=== PATIENT | male | born 1950 | race African-American/Black ===

== ENCOUNTER 2017-12-30 01:39 | Inpatient (IN) | payer BC ==
[2017-12-30 02:33] LABS: #Eosinphils 0.1 thou/uL (0.0-0.7); #Lymphocytes 1.2 thou/uL (1.20-3.40); #Monocytes 0.3 thou/uL (0.11-0.59); #Neutrophils 4.5 thou/uL (1.40-6.50); %Basophils 0.8 % (0.0-1.0); %Eosinophils 2.3 % (0.0-10.0); %Lymphocytes 18.6 % (21.0-51.0); %Monocytes 5.5 % (0.0-10.0); %Neutrophils 72.8 % (42.0-75.0); Mean Corpuscular HGB CONC 34.1 g/dL (32.0-36.0); Mean Corpuscular Hemoglobin 31.5 pg (27.0-31.0); Mean Corpuscular Volume 92.4 fL (78.0-98.0); Mean Platelet Volume 9.7 fL (7.4-10.4); Platelet Count 153 thou/uL (130-400); RBC Distribution Width 15.1 % (11.5-14.5); White Blood Cell (WBC) Count 6.2 thou/uL (4.8-10.8)
[2017-12-30 02:47] LABS: ALT (SGPT) 29 U/L (8-55); AST (SGOT) 29 U/L (5-34); Albumin 4.2 g/dL (3.4-4.8); Alkaline Phosphatase 133 U/L (40-150); Anion Gap 17 mmol/L (10-20); BUN (Urea Nitrogen) 49 mg/dL (8.4-25.7); Bilirubin, Total 1.2 mg/dL (0.2-1.2); CK (CPK) 491 U/L (30-200); Calc. Creatinine Clearance 0 mL/min (70-130); Calcium 9.8 mg/dL (7.8-10.44); Carbon Dioxide 23 mmol/L (23-31); Chloride 104 mmol/L (98-107); Estimated GFR-MDRD 31; Globulin 3.3 g/dL (2.4-3.5); Glucose 341 mg/dL (80-115); Potassium 3.6 mmol/L (3.5-5.1); Protein, Total 7.5 g/dL (5.8-8.1); Sodium 140 mmol/L (136-145)
[2017-12-30 03:00] LABS: Troponin I 1.254 ng/mL (< 0.028)
[2017-12-30] MEDS ORDERED: Furosemide 40 MG/4 ML VIAL ONE (03:15)
[2017-12-30] MEDS ORDERED: Enoxaparin Sodium 60 MG/0.6 ML SYRINGE ONE (04:14)
[2017-12-30 04:18] LABS: Bilirubin Negative (Negative); Blood, Urine Trace (Negative); Clarity CLEAR (Clear); Glucose, Urine (Dipstick) 250 mg/dL (Negative); Leukocyte Negative (Negative); Nitrite Negative (Negative); Protein, Urine (Dipstick) 100 mg/dL (Neg-Trace); Specific Gravity, Urine 1.023 (1.002-1.036); pH, Urine 5.5 (5.0-9.0)
[2017-12-30 04:21] LABS: Bacteria/HPF None Seen HPF (None Seen); Hyaline Casts/LPF 0-3 HYALINE CAST LPF (0-3 Hyaline); Pathc Cast-AUWi Flag 0.58 (0-2.49); RBC/HPF 0-3 HPF (0-3); Squamous Epithelial 0-3 HPF (0-3); WBC/HPF 0-3 HPF (0-3)
[2017-12-30] MEDS ORDERED: Mag-Al 1200 mg/1200 mg/30 ML UDCUP PO PRN (05:16)
[2017-12-30] MEDS ORDERED: Diabetic Tussin 200 MG/10 ML UDCUP PO PRN (05:16)
[2017-12-30] MEDS ORDERED: cloNIDine 0.1 MG TAB PO PRN (05:16)
[2017-12-30] MEDS ORDERED: Ondansetron HCl/PF 4 MG/2 ML Vial IVP PRN (05:16)
[2017-12-30] MEDS ORDERED: Bisacodyl 5 MG TAB PO PRN (05:16)
[2017-12-30] MEDS ORDERED: Acetaminophen 325 MG TAB PO PRN (05:16)
[2017-12-30] MEDS ORDERED: Calcium Carbonate 500 MG ChewTAB PO PRN (05:16)
[2017-12-30] MEDS ORDERED: Nitroglycerin 0.4 MG TAB (25 Tab Bottle) SL PRN (05:16)
[2017-12-30] MEDS ORDERED: Dextrose 5% in Water 1,000 ML IV PRN (05:16)
[2017-12-30] MEDS ORDERED: traMADol HCl 50 MG TAB PO PRN (05:16)
[2017-12-30] MEDS ORDERED: Benzonatate 100 MG CAP PO PRN (05:16)
[2017-12-30] MEDS ORDERED: Loratadine 10 MG TAB PO PRN (05:16)
[2017-12-30] MEDS ORDERED: hydrALAZINE 20 MG/ML VIAL SLOW IVP PRN (05:16)
[2017-12-30] MEDS ORDERED: Senokot 8.6 MG TAB PO PRN (05:16)
[2017-12-30] MEDS ORDERED: Dextrose 50% Abboject 50 ML SYRINGE SLOW IVP PRN (05:16)
[2017-12-30 05:26] LABS: Troponin I 1.641 ng/mL (< 0.028)
[2017-12-30] MEDS ORDERED: Metolazone 5 MG TAB PO SCH (05:30)
[2017-12-30 05:59] VITALS: BMI 36.3
[2017-12-30] MEDS: Furosemide 40 MG/4 ML VIAL SLOW IVP SCH ×2 (06:24→14:25)
[2017-12-30 06:51] LABS: Hemoglobin A1c 9.2 % (4.0-6.0)
[2017-12-30] MEDS ORDERED: Spironolactone 25 MG TAB PO SCH (09:00)
[2017-12-30] MEDS ORDERED: Enoxaparin Sodium 40 MG/0.4 ML SYRINGE SC SCH (09:00)
[2017-12-30] MEDS ORDERED: Potassium Chloride 10 MEQ TAB PO SCH (09:00)
[2017-12-30 09:16] LABS: Troponin I 2.027 ng/mL (< 0.028)
[2017-12-30] MEDS: Famotidine 20 MG TAB PO SCH (09:47)
[2017-12-30] MEDS: Aspirin 325 MG TAB PO SCH (09:49)
[2017-12-30] MEDS: Carvedilol 3.125 MG TAB PO SCH ×2 (09:49→21:25)
[2017-12-30] MEDS: Alogliptin 6.25 MG TAB PO SCH (09:50)
[2017-12-30] MEDS: Aspirin 81 mg Enteric Coated Tablet PO SCH (09:52)
[2017-12-30] MEDS: Enoxaparin Sodium 120 MG/0.8 ML SYRINGE SC SCH ×2 (09:52→21:25)
--- NOTE | 2017-12-30 10:59 | RAD ---
PORTABLE CHEST 1 VIEW: DATE: 12/30/17. TIME: 2:08 a.m. HISTORY: Shortness of breath. FINDINGS: Comparison is made with the exam of 10/30/07. The heart size is prominent. The aorta is tortuous. The left-sided AICD remains in place. No lobar consolidation, pneumothoraces, maría pulmonary edema, or pleural effusions are seen. POS: [facility]
[2017-12-30] MEDS: HumaLOG 300 UNITS/3 ML VIAL SC PRN ×2 (13:12→17:49)
[2017-12-30] MEDS ORDERED: Sodium Chloride 0.9% 10 ML ONE (14:17)
--- NOTE | 2017-12-30 15:04 | PDOC.EVN ---
Event Note - Event Note Event Note: Chart reviewed, patient seen. having runs of SVT, will follow.
--- NOTE | 2017-12-30 17:42 | CON ---
DATE OF CONSULTATION: 12/30/2017 CARDIOLOGY CONSULTATION REASON FOR CONSULTATION: Heart failure. PRIMARY WAITER/WAITRESS DINING CAR: Selvin Ivan M.D. HISTORY OF PRESENT ILLNESS: Mr. Grullon is a pleasant 67-year-old gentleman who comes to the hospital for shortness of breath. He has a history of ischemic cardiomyopathy with last EF about 3 years ago at 30%-35%. He has severe multivessel diffuse coronary artery disease, not amenable to any intervention, so he has been treated medically. He has an AICD in place. He has been lost to follow up for the last year. He was at home. He thinks that the reason for the increase in his breath is eating more watermelon recently. It was so sweet that he just kept eating and he feels this made him fluid overload. He came in short of breath with no chest pain, tightness or pressure , just the shortness of breath. He received some IV Lasix and is already feeling better after diuresis. PAST MEDICAL HISTORY: 1. Coronary artery disease, as above. 2. Ischemic cardiomyopathy with EF of 30%-35% in last echo in 2014. 3. Presence of an AICD. 4. Hyperlipidemia. 5. Hypertension. 6. Gastroesophageal reflux disease. 7. Chronic kidney disease. 8. Type 2 diabetes. 9. Noncompliance. 10. Obstructive sleep apnea. 11. Morbid obesity. PAST SURGICAL HISTORY: 1. Heart catheterization in the past. 2. Tracheostomy in the past. 3. ICD placement. OUTPATIENT MEDICATIONS: Include, 1. Januvia 50 mg a day. 2. Potassium chloride 10 mEq b.i.d. 3. Carvedilol 3.125 mg p.o. b.i.d. 4. Aspirin 81 a day. 5. Torsemide 20 mg a day. 6. Niacin. 7. Imdur 30 mg a day. 8. Atorvastatin 80 mg at bedtime. ALLERGIES: No known drug allergies. SOCIAL HISTORY: No alcohol, tobacco or drugs. FAMILY HISTORY: Noncontributory. REVIEW OF SYSTEMS: A 12-point review of systems was done and it is all negative unless stated in the history of present illness. PHYSICAL EXAMINATION: VITAL SIGNS: Temperature 98.0, pulse 94, respiratory rate 18, satting 100% on room air, blood pressure 112/68. GENERAL: Awake, alert, oriented x3, in no distress. HEENT: Normocephalic, atraumatic. NECK: Supple. LUNGS: Clear. CARDIOVASCULAR: S1, S2. No S3 or S4. No murmurs. ABDOMEN: Soft with positive bowel sounds. EXTREMITIES: No edema. SKIN: Warm and dry. LABORATORY WORK: Reviewed. CBC with a white count of 6.2, hemoglobin 11, hematocrit of 32, platelet count of 153,000. Chemistry is unremarkable except for a BUN of 49, creatinine of 2.53, GFR of 31, glucose was 341. Hemoglobin A1c of 9.2. Lactic acid of 2.2. CK of 491, CK-MB of 9.0 and troponin I has been 1.2, then 1.6, now 2.0. BNP was 2239, albumin of 4.2. IMAGING: Chest x-ray shows tortuous aorta, prominent heart size, AICD in place. No consolidation or pulmonary edema. ASSESSMENT: 1. Non-ST elevation myocardial infarction. 2. Acute on chronic systolic heart failure. 3. Ischemic cardiomyopathy with ejection fraction of 30%-35%, last evaluated. 4. Severe multivessel diffuse coronary artery disease, not amenable to intervention both bypass or catheter based. 5. Noncompliance. 6. Hypertension. 7. Supraventricular tachycardia. 8. Chronic kidney disease. PLAN: 1. Would recommend full anticoagulation for 48 hours, as this may be some progression of ischemia. 2. Continue IV Lasix. He is already feeling much better after some diuresis. 3. Would interrogate AICD and make sure he is not having any runs of ventricular tachycardia, if his pacing burden is high he may need an upgrade to a bi ventricular device. 4. Cannot up titrate his beta clara. He is having runs of nonsustained supraventricular tachycardia. We will discontinue his home dose of beta clara. 5. Would stop Aldactone and potassium given his creatinine of 2.53 and Aldactone is contraindicated with a creatinine above 2.5 in males. Thank you for letting us to participate in the care of your patient. Dr. Ivan, his primary sampler pickup will follow up in the morning. [facility]. [facility] HOSPITALNiurka
[2017-12-30] MEDS: Atorvastatin Calcium 40 MG TAB PO SCH (21:25)
[2017-12-31 05:38] LABS: #Eosinphils 0.1 thou/uL (0.0-0.7); #Lymphocytes 1.2 thou/uL (1.20-3.40); #Monocytes 0.4 thou/uL (0.11-0.59); #Neutrophils 7.2 thou/uL (1.40-6.50); %Basophils 0.2 % (0.0-1.0); %Eosinophils 1.4 % (0.0-10.0); %Lymphocytes 13.6 % (21.0-51.0); %Monocytes 4.8 % (0.0-10.0); Hemoglobin 11.1 g/dL (14.0-18.0); Mean Corpuscular HGB CONC 33.2 g/dL (32.0-36.0); Mean Corpuscular Hemoglobin 30.9 pg (27.0-31.0); Mean Corpuscular Volume 92.9 fL (78.0-98.0); Mean Platelet Volume 9.2 fL (7.4-10.4); Platelet Count 194 thou/uL (130-400); RBC Distribution Width 15.2 % (11.5-14.5); Red Blood Cell (RBC) Count 3.61 mill/uL (4.70-6.10)
[2017-12-31 05:44] LABS: Anion Gap 16 mmol/L (10-20); BUN (Urea Nitrogen) 52 mg/dL (8.4-25.7); Calc. Creatinine Clearance 51 mL/min (70-130); Calcium 9.4 mg/dL (7.8-10.44); Carbon Dioxide 25 mmol/L (23-31); Chloride 104 mmol/L (98-107); Estimated GFR-MDRD 32; Glucose 169 mg/dL (80-115); Potassium 4.2 mmol/L (3.5-5.1); Sodium 141 mmol/L (136-145)
[2017-12-31] MEDS: Furosemide 40 MG/4 ML VIAL SLOW IVP SCH ×2 (05:57→14:07)
[2017-12-31] MEDS ORDERED: Sodium Chloride 0.9% 10 ML ONE ×3 (08:05→17:54)
--- NOTE | 2017-12-31 08:39 | HP ---
PRIMARY CARE PHYSICIAN: Kylee Pham D.O. CHIEF COMPLAINT: Worsening shortness of breath. HISTORY OF PRESENTING ILLNESS: Mr. Grullon is a 67-year-old male with known history of ischemic cardi omyopathy, status post AICD placement and inoperable severe coronary artery disease who presented to the emergency room with the above-mentioned complaint. History is mainly obtained by the patient him self who was a rather poor historian. It is supplemented by multiple family members present in the r oom. Electronic medical records have been reviewed. Mr. Grullon had a cardiac catheterization in which showed 3-vessel coronary artery disease and severe diffuse disease. He had an echocardiogram done in 2007, which showed EF of 20%-25%. He follows up with Dr. Ivan and his last appointment was about 6 months ago. Mr. Grullon reports that he takes Lasix on a daily basis, but has always noticed that it does not help with the fluid retention. He instead takes his 's hydrochlorothiazide and feels that his sympto ms get better quickly. He has been noticing worsening shortness of breath. About 4-5 months ago, he was taken off of Lasix by the primary care physician and was started on Demadex because of his non-r esponsiveness to the Lasix. However, his symptoms did not improve much and he continues to get short of breath now and then. For the last 2 weeks, he feels that he is getting fluid overloaded with wor sening shortness of breath and lower extremity swelling. His symptoms are mostly that he starts to s pit excessively and his nose starts to drip. He denies any chest pain, but he is short of breath whe n he walks around. He denies any claudication. He denies any dizziness or lightheadedness. He abebe es any recent illnesses. No fever, chills or cough. He is compliant with his medication, though is not compliant with fluid restriction and drinks a lot of soda as per his daughter. Upon presentation to the emergency room, he was hemodynamically stable with oxygen saturation of 99% on room air, blood pressure 157/68. His initial workup included a 12-lead EKG, which did not have an y evidence to suggest acute ST or T-wave changes. His chest x-ray showed pulmonary edema and his lab oratory work was consistent with elevated BNP over 1999 and elevated cardiac enzymes with CK-MB of 9 and troponin of 1.254. His CK is 491. His creatinine is elevated to 2.53 with baseline creatinine a round 1.7-1.8. Blood sugar 341. He received 1 dose of therapeutic Lovenox at 1 mg/kg for non-ST morris vation TN as well as 40 mg of Lasix in the emergency room along with aspirin for acute CHF. He is no w being admitted for the same. PAST MEDICAL HISTORY: 1. Ischemic cardiomyopathy, status post AICD placement. 2. Diabetes mellitus. 3. Hypertension. 4. Dyslipidemia. 5. Inoperable coronary artery disease. The patient was told at one point of time that he is a alea date for heart transplant, but he declined it. He still does not desirous of heart transplant. PAST SURGICAL HISTORY: 1. Cardiac catheterization. 2. AICD placement. 3. Bilateral cataract surgery. PSYCHIATRIC HISTORY: No anxiety, no depression. SOCIAL HISTORY: He has no history of drug, tobacco or alcohol abuse. He is and lives with h is family. FAMILY HISTORY: Significant for breast cancer in mother and heart disease in father. ALLERGIES: No known medication allergies. HOME MEDICATIONS: Are as follows; aspirin 81 mg daily, Januvia 50 mg daily, potassium chloride 10 mE q daily, Coreg 3.125 mg p.o. b.i.d., Demadex 20 mg daily, niacin 500 mg daily, isosorbide mononitrate 30 mg daily and atorvastatin 80 mg daily. The following complete review of systems was negative, unless otherwise mentioned in the HPI or below: Constitutional: Weight loss or gain, sense of well-being, ability to conduct usual activities, exerc ise tolerance. Skin/Breast: Rash, itching, changes in hair growth or loss, nail changes, breast lumps, tenderness, swelling, nipple discharge. Eyes: Vision, double vision, tearing, blind spots, pain. ENT/Mouth: Headaches (location, time of onset, duration, precipitating factors), vertigo, lightheadedness, injury. Vision, double vision, tearing, blind spots, pain, nose b leeding, colds, obstruction, discharge, dental difficulties, gingival bleeding, dentures, neck stiffn ess, pain, tenderness, masses in thyroid or other areas Cardiovascular: Precordial pain, substernal distress, palpitations, syncope, dyspnea on exertion, or thopnea, nocturnal paroxysmal dyspnea, edema, cyanosis, hypertension, heart murmurs, varicosities, ph lebitis, claudication. Respiratory: Pain, shortness of breath, wheezing, stridor, cough, hemoptysis, fever or night sweats Gastrointestinal: Poor appetite, dysphagia, indigestion, abdominal pain, heartburn, eructation, naus ea, vomiting, hematemesis, jaundice, constipation, or diarrhea, abnormal stools (marichuy-colored, tarry, bloody, greasy, foul smelling), flatulence, hemorrhoids, recent changes in bowel habits. Genitourinary: Urgency, frequency, dysuria, nocturia, hematuria, polyuria, oliguria, unusual (or lucas nge in) color of urine, stones, hesitancy, change in size of stream, dribbling, acute retention or in continence, libido, potency. Musculoskeletal: Pain, swelling, redness or heat of muscles or joints, limitation, of motion, muscular weakness, atrophy, cramps. Neurologic/Psychiatric: Convulsions, paralyses, tremor, incoordination, parasthesias, difficulties w ith memory of speech, sensory or motor disturbances, or muscular coordination (ataxia, tremor), emoti onal problems, anxiety, depression, previous psychiatric care, unusual perceptions, hallucinations. Allergy/Immunologic: Skin rash, anemia, bleeding tendency, polydipsia, polyuria, intolerance to heat or cold. It is done and negative except for those mentioned in the history and physical. LABORATORY DATA AND IMAGING DATA: CBC shows hemoglobin of 11, otherwise unremarkable. Serum rubber chemist aubrie show BUN 49, creatinine 2.53, blood sugar 341, lactic acid normal. BNP 2239, repeat cardiac enz ymes with troponin of 1.641. Urinalysis shows proteinuria and glucosuria. Chest x-ray by my review shows evidence of pulmonary vascular congestion. Twelve lead EKG by my review shows normal sinus rhy thm at 109 beats per minute. PHYSICAL EXAMINATION: VITAL SIGNS: Most recent vital signs; temperature 98.2, pulse of 96, respirations 22, saturating 96% on room air, blood pressure 121/69. GENERAL: No acute distress. He is sitting up on the side of the bed, awake, alert, oriented x3. HEENT: Mucous membrane is moist and pink. No oropharyngeal exudate or erythema. Head is normocepha lic and atraumatic. Pupils are equal, reactive to light and accommodation. Extraocular movement int act. NECK: Supple without any lymphadenopathy, JVD or bruit. CHEST: Evaluation showed bibasilar crackles bilaterally without any wheezing. Rate and rhythm is re gular without any murmur, rubs or gallops. ABDOMEN: Soft, nontender, nondistended, positive bowel sounds. It is morbidly obese. EXTREMITIES: Showed pitting edema +[address] up to his mid jenkins. NEUROLOGIC: Examination is nonfocal. SKIN: Free of any rashes or bruises. Feel warm and dry to touch. PSYCHIATRIC: Normal affect. IMPRESSION AND PLAN: 1. Acute on chronic systolic congestive heart failure. The patient will be admitted to the telemetr y unit and we will start him on heart failure protocol with IV Lasix, fluid restriction. We will obt ain a transthoracic echocardiogram and consult Cardiology. Continue to trend serial cardiac enzymes. Given the fact that he has had cardiomyopathy, we will start him on low dose Aldactone and titrate based on his response. We will also give him one dose of Zaroxolyn as he reports tolerance to Lasix. We will consult cardiac rehabilitation and refer him to [facility] Failure [facility] as an outpatient. He will be on heart healthy diet. Continue his home medication of aspirin and beta clara for now. At this time, avoid QUINN inhibitor in light of acute on chronic renal insufficiency. Strict I's and O's will be monitored. We will continue the statin. 2. Acute on chronic kidney disease. Avoid any nephrotoxic medications. Likely cardiorenal in gabby e. Monitor strict I's and O's. 3. Non-ST elevation myocardial infarction. The patient will be treated with therapeutic dose of Joel enox 1 mg/kg as his troponins are trending upwards. He has known history of severe inoperable acosta ry artery disease and has refused heart transplant in the past. Continue medical management for now. We will wait for final Cardiology recommendations as well. 4. Hyperglycemia due to diabetes mellitus. We will resume his home medication of Januvia for now. Add insulin sliding scale for better control. We will check hemoglobin A1c. The patient might need to be started on either second oral hypoglycemics. 5. Coronary artery disease. Resume home medications as above. Add Aldactone. Add QUINN inhibitor or ARB with the dura function improves. 6. Ischemic cardiomyopathy. Continue with Lasix and add Aldactone as above. Obtain new echocardiog bud. The patient will follow up with Cardiology in the outpatient setting as well. 7. Dyslipidemia. Resume atorvastatin. 8. Code status: FULL CODE discussed with the patient. 9. Deep venous thrombosis and gastrointestinal prophylaxis and p.r.n. medications. DISPOSITION: Mr. Grullon is currently being admitted to the hospital with acute congestive heart fail ure exacerbation. Estimated length of stay at least 2-3 midnights. Further management will depend u nathalia his clinical course.
[2017-12-31] MEDS: Carvedilol 3.125 MG TAB PO SCH ×2 (09:23→21:08)
[2017-12-31] MEDS: HumaLOG 300 UNITS/3 ML VIAL SC PRN ×4 (09:23→21:09)
[2017-12-31] MEDS: Alogliptin 6.25 MG TAB PO SCH (09:23)
[2017-12-31] MEDS: Aspirin 325 MG TAB PO SCH (09:23)
[2017-12-31] MEDS: Aspirin 81 mg Enteric Coated Tablet PO SCH (09:24)
[2017-12-31] MEDS: Famotidine 20 MG TAB PO SCH (09:24)
[2017-12-31] MEDS: Enoxaparin Sodium 120 MG/0.8 ML SYRINGE SC SCH ×2 (09:25→21:07)
--- NOTE | 2017-12-31 15:14 | PDOC.PN ---
- Subjective Encounter Start Date: 12/31/17 Encounter Start Time: 07:40 Pt seen for followup re: CHF exacerbation. Denies chest pain. Feels better. No nausea or vomiting. Shortness of breath is better. - Objective MAR Reviewed: Yes Vital Signs & Weight: Vital Signs (12 hours) Temp Pulse Pulse Pulse Resp BP BP 12/31/17 12:00 98.6 F 65 16 12/31/17 10:28 91 84 106/51 L 99/64 12/31/17 08:00 97.4 F L 94 16 12/31/17 04:00 98.3 F 85 18 BP BP BP Pulse Ox Pulse Ox Pulse Ox 12/31/17 12:00 94/57 L 12/31/17 10:28 99 97 12/31/17 08:00 133/72 16 L 12/31/17 04:00 109/69 96 Weight Weight 263 lb 3.2 oz I&O: 12/30/17 12/31/17 01/01/18 06:59 06:59 06:59 Intake Total 0 790 Output Total 200 2375 Balance -200 -1585 Result Diagrams: 12/31/17 05:04 12/31/17 05:04 Additional Labs: Accuchecks 12/31/17 12/31/17 12/30/17 12:14 05:57 21:03 POC Glucose 207 H 179 H 160 H 12/30/17 16:55 POC Glucose 340 H EKG Reviewed by me: Yes (NSR, runs of SVT on telemetry) Phys Exam - Physical Examination Obese HEENT: moist MMs, sclera anicteric, oral pharynx no lesions, 2+ tonsils Neck: no nodes, no JVD, supple, full ROM Respiratory: no wheezing, no rhonchi Rajiv crackles Cardiovascular: RRR, no rub S1, S2 Gastrointestinal: soft, non-tender, no distention, positive bowel sounds Neurological: moves all 4 limbs Psychiatric: normal affect, A&O x 3 Dx/Plan (1) Acute exacerbation of CHF (congestive heart failure) Code(s): I50.9 - HEART FAILURE, UNSPECIFIED Status: Acute Qualifiers: Heart failure type: combined systolic and diastolic Qualified Code(s): I50.43 - Acute on chronic combined systolic (congestive) and diastolic ( congestive) heart failure Comment: ACC/AHA stage C. continue diuretics. (2) NSTEMI (non-ST elevated myocardial infarction) Code(s): I21.4 - NON-ST ELEVATION (NSTEMI) MYOCARDIAL INFARCTION Status: Acute Comment: continue Lovenox, monitor on telemetry (3) SVT (supraventricular tachycardia) Code(s): I47.1 - SUPRAVENTRICULAR TACHYCARDIA Status: Acute Comment: continue to monitor on telemetry (4) Ischemic cardiomyopathy Code(s): I25.5 - ISCHEMIC CARDIOMYOPATHY Status: Acute Comment: s/p AICD (5) CKD (chronic kidney disease), stage III Code(s): N18.3 - CHRONIC KIDNEY DISEASE, STAGE 3 (MODERATE) Status: Chronic Comment: stable (6) Dyslipidemia Code(s): E78.5 - HYPERLIPIDEMIA, UNSPECIFIED Status: Chronic Comment: continue statin (7) HTN (hypertension) Code(s): I10 - ESSENTIAL (PRIMARY) HYPERTENSION Status: Chronic Comment: controlled (8) DM2 (diabetes mellitus, type 2) Status: Chronic Comment: continue accuchecks, insulin sliding scale - Plan * . Review of Systems - Review of Systems Constitutional: negative: fever, chills, sweats, weakness, malaise Respiratory: SOB with Excertion. negative: Cough, Shortness of Breath, Pleuritic Pain, Sputum, Wheezing Cardiovascular: orthopnea. negative: chest pain, palpitations, paroxysmal nocturnal dyspnea, edema, light headedness Gastrointestinal: negative: Nausea, Vomiting, Abdominal Pain, Diarrhea, Constipation, Melena, Hematochezia Genitourinary: negative: Dysuria, Frequency, Incontinence, Hematuria, Retention Musculoskeletal: negative: Neck Pain, Shoulder Pain, Arm Pain, Back Pain, Hand Pain, Leg Pain, Foot Pain - Medications/Allergies Allergies/Adverse Reactions: Allergies Allergy/AdvReac Type Severity Reaction Status Date / Time No Known Allergies Allergy Unverified 12/30/17 05:23 Medications: Current Medications Acetaminophen (Tylenol) 650 mg PO Q4H PRN PRN Reason: Headache/Fever or Pain Al Hydroxide/Mg Hydroxide (Maalox) 30 ml PO Q6H PRN PRN Reason: Heartburn or Indigestion Alogliptin Benzoate (Alogliptin) 12.5 mg PO DAILY [facility] Last Admin: 12/31/17 09:23 Dose: 12.5 mg Aspirin (Aspirin) 325 mg PO DAILY [facility] Last Admin: 12/31/17 09:23 Dose: 325 mg Atorvastatin Calcium (Lipitor) 80 mg PO HS [facility] Last Admin: 12/30/17 21:25 Dose: 80 mg Benzonatate (Tessalon) 100 mg PO Q4H PRN PRN Reason: Cough Bisacodyl (Dulcolax) 10 mg PO DAILYPRN PRN PRN Reason: Constipation Calcium Carbonate (Tums) 1,000 mg PO Q4H PRN PRN Reason: Heartburn or Indigestion Carvedilol (Coreg) 3.125 mg PO BID [facility] Last Admin: 12/31/17 09:23 Dose: 3.125 mg Clonidine (Catapres) 0.1 mg PO Q4H PRN PRN Reason: Systolic BP > 160 Dextrose/Water (Dextrose 50%) 25 gm SLOW IVP PRN PRN PRN Reason: Hypoglycemia Enoxaparin Sodium (Lovenox) 120 mg SC 0900,2100 [facility] Last Admin: 12/31/17 09:25 Dose: 120 mg Famotidine (Pepcid) 20 mg PO DAILY [facility] Last Admin: 12/31/17 09:24 Dose: 20 mg Furosemide (Lasix) 40 mg SLOW IVP 0600,1400 [facility] Last Admin: 12/31/17 14:07 Dose: Not Given Furosemide (Lasix) 20 mg SLOW IVP NOW [facility] Stop: 12/31/17 17:15 Glucagon (Glucagon) 1 mg IM PRN PRN PRN Reason: Hypoglycemia Guaifenesin (Robitussin Sf) 200 mg PO Q4H PRN PRN Reason: Cough Hydralazine HCl (Apresoline) 10 mg SLOW IVP Q4H PRN PRN Reason: Systolic BP > 170 Dextrose/Water (D5w) 1,000 mls @ 0 mls/hr IV .Q0M PRN PRN Reason: Hypoglycemia Insulin Human Lispro (Humalog) 0 units SC .MODERATE SLIDING SC PRN PRN Reason: Moderate Correctional Scale Last Admin: 12/31/17 12:18 Dose: 4 unit Insulin Human Lispro (Humalog) 0 units SC .BEDTIME SLIDING SC PRN PRN Reason: Bedtime Correctional Scale Isosorbide Mononitrate (Imdur Er) 30 mg PO DAILY [facility] Last Admin: 12/31/17 09:23 Dose: 30 mg Loratadine (Claritin) 10 mg PO DAILYPRN PRN PRN Reason: Sinus Symptoms Niacin (Niaspan Er) 500 mg PO HS [facility] Last Admin: 12/30/17 21:25 Dose: 500 mg Nitroglycerin (Nitrostat) 0.4 mg SL Q5MIN PRN PRN Reason: Chest Pain Ondansetron HCl (Zofran) 4 mg IVP Q6H PRN PRN Reason: Nausea/Vomiting Senna (Senokot) 2 tab PO HSPRN PRN PRN Reason: Constipation Tramadol HCl (Ultram) 50 mg PO Q4H PRN PRN Reason: Moderate Pain (4-6)
[2017-12-31] MEDS ORDERED: Furosemide 20 MG/2 ML VIAL SLOW IVP SCH ×2 (15:15→17:45)
[2017-12-31] MEDS: Atorvastatin Calcium 40 MG TAB PO SCH (21:08)
[2017-12-31 23:26] LABS: Hemoglobin 10.7 g/dL (14.0-18.0); Platelet Count 198 thou/uL (130-400)
[2018-01-01] MEDS ORDERED: Furosemide 20 MG/2 ML VIAL SLOW IVP SCH (06:00)
[2018-01-01 06:09] LABS: Cardiac Risk 4.7 (Less than 4.5)
[2018-01-01] MEDS: Furosemide 40 MG/4 ML VIAL SLOW IVP SCH ×2 (06:18→15:13)
[2018-01-01 08:02] LABS: #Eosinphils 0.1 thou/uL (0.0-0.7); #Lymphocytes 1.1 thou/uL (1.20-3.40); #Monocytes 0.4 thou/uL (0.11-0.59); #Neutrophils 5.2 thou/uL (1.40-6.50); %Basophils 0.4 % (0.0-1.0); %Eosinophils 1.7 % (0.0-10.0); %Lymphocytes 15.5 % (21.0-51.0); %Monocytes 6.2 % (0.0-10.0); %Neutrophils 76.1 % (42.0-75.0); Hemoglobin 10.4 g/dL (14.0-18.0); Mean Corpuscular HGB CONC 32.7 g/dL (32.0-36.0); Mean Corpuscular Hemoglobin 30.4 pg (27.0-31.0); Mean Corpuscular Volume 93.2 fL (78.0-98.0); Mean Platelet Volume 9.5 fL (7.4-10.4); Platelet Count 189 thou/uL (130-400); RBC Distribution Width 15.5 % (11.5-14.5); Red Blood Cell (RBC) Count 3.42 mill/uL (4.70-6.10); White Blood Cell (WBC) Count 6.8 thou/uL (4.8-10.8)
[2018-01-01 08:33] LABS: Anion Gap 16 mmol/L (10-20); BUN (Urea Nitrogen) 63 mg/dL (8.4-25.7); Calc. Creatinine Clearance 42 mL/min (70-130); Calcium 9.2 mg/dL (7.8-10.44); Carbon Dioxide 26 mmol/L (23-31); Chloride 100 mmol/L (98-107); Estimated GFR-MDRD 26; Glucose 292 mg/dL (80-115); Potassium 3.7 mmol/L (3.5-5.1); Sodium 138 mmol/L (136-145)
[2018-01-01] MEDS: Aspirin 325 MG TAB PO SCH (09:02)
[2018-01-01] MEDS: Alogliptin 6.25 MG TAB PO SCH (09:02)
[2018-01-01] MEDS: Enoxaparin Sodium 120 MG/0.8 ML SYRINGE SC SCH ×2 (09:02→21:53)
[2018-01-01] MEDS: Carvedilol 3.125 MG TAB PO SCH ×2 (09:02→21:54)
[2018-01-01] MEDS: HumaLOG 300 UNITS/3 ML VIAL SC PRN ×4 (09:03→21:56)
[2018-01-01] MEDS: Famotidine 20 MG TAB PO SCH (09:03)
--- NOTE | 2018-01-01 12:54 | PDOC.PN ---
- Subjective Encounter Start Date: 01/01/18 Encounter Start Time: 08:00 Pt seen for followup re: combined CHF exacerbation stage C. Feels better. denies fevers or chills. - Objective Vital Signs & Weight: Vital Signs (12 hours) Temp Pulse Resp BP BP Pulse Ox 01/01/18 12:16 93 15 108/65 94 L 01/01/18 08:00 97.6 F 87 17 109/50 L 93 L 01/01/18 07:30 97.6 F 87 17 93 L 01/01/18 03:19 98.4 F 87 18 100/57 L 92 L Weight Weight 262 lb 1.6 oz I&O: 12/31/17 01/01/18 01/02/18 06:59 06:59 06:59 Intake Total 790 870 100 Output Total 2375 1645 Balance -1585 -775 100 Result Diagrams: 01/01/18 07:46 01/01/18 05:19 Additional Labs: Accuchecks 01/01/18 01/01/18 12/31/17 10:39 05:46 23:24 POC Glucose 272 H 277 H 206 H 12/31/17 12/31/17 20:32 17:18 POC Glucose 297 H 276 H Phys Exam - Physical Examination Obese HEENT: moist MMs, sclera anicteric, oral pharynx no lesions, 2+ tonsils Respiratory: no wheezing, no rhonchi Rajiv crackles Cardiovascular: RRR, no rub S1, S2 Gastrointestinal: soft, non-tender, no distention, positive bowel sounds Musculoskeletal: edema present Neurological: moves all 4 limbs Psychiatric: normal affect, A&O x 3 Dx/Plan (1) Acute exacerbation of CHF (congestive heart failure) Code(s): I50.9 - HEART FAILURE, UNSPECIFIED Status: Acute Qualifiers: Heart failure type: combined systolic and diastolic Qualified Code(s): I50.43 - Acute on chronic combined systolic (congestive) and diastolic ( congestive) heart failure Comment: ACC/AHA stage C. Clinically improving. Renal function worse today. (2) NSTEMI (non-ST elevated myocardial infarction) Code(s): I21.4 - NON-ST ELEVATION (NSTEMI) MYOCARDIAL INFARCTION Status: Acute Comment: on Lovenox, telemetry monitoring (3) SVT (supraventricular tachycardia) Code(s): I47.1 - SUPRAVENTRICULAR TACHYCARDIA Status: Acute Comment: continue to monitor on telemetry (4) Ischemic cardiomyopathy Code(s): I25.5 - ISCHEMIC CARDIOMYOPATHY Status: Acute Comment: s/p AICD (5) CKD (chronic kidney disease), stage III Code(s): N18.3 - CHRONIC KIDNEY DISEASE, STAGE 3 (MODERATE) Status: Chronic Comment: creatinine worse today, continue to monitor (6) Dyslipidemia Code(s): E78.5 - HYPERLIPIDEMIA, UNSPECIFIED Status: Chronic Comment: on statin (7) HTN (hypertension) Code(s): I10 - ESSENTIAL (PRIMARY) HYPERTENSION Status: Chronic Comment: controlled (8) DM2 (diabetes mellitus, type 2) Status: Chronic Comment: continue accuchecks, insulin sliding scale - Plan * . Review of Systems - Review of Systems Constitutional: negative: fever, chills, sweats, weakness, malaise Respiratory: SOB with Excertion. negative: Cough, Shortness of Breath, Wheezing Cardiovascular: negative: chest pain, palpitations, orthopnea, paroxysmal nocturnal dyspnea, edema, light headedness Gastrointestinal: negative: Nausea, Vomiting, Abdominal Pain, Diarrhea, Constipation, Melena, Hematochezia Genitourinary: negative: Dysuria, Frequency, Incontinence, Hematuria, Retention Skin: negative: Rash, Lesions, Carlos Alberto, Bruising - Medications/Allergies Allergies/Adverse Reactions: Allergies Allergy/AdvReac Type Severity Reaction Status Date / Time No Known Allergies Allergy Unverified 12/30/17 05:23 Medications: Current Medications Acetaminophen (Tylenol) 650 mg PO Q4H PRN PRN Reason: Headache/Fever or Pain Al Hydroxide/Mg Hydroxide (Maalox) 30 ml PO Q6H PRN PRN Reason: Heartburn or Indigestion Alogliptin Benzoate (Alogliptin) 12.5 mg PO DAILY [facility] Last Admin: 01/01/18 09:02 Dose: 12.5 mg Aspirin (Aspirin) 325 mg PO DAILY [facility] Last Admin: 01/01/18 09:02 Dose: 325 mg Atorvastatin Calcium (Lipitor) 80 mg PO HS [facility] Last Admin: 12/31/17 21:08 Dose: 80 mg Benzonatate (Tessalon) 100 mg PO Q4H PRN PRN Reason: Cough Bisacodyl (Dulcolax) 10 mg PO DAILYPRN PRN PRN Reason: Constipation Calcium Carbonate (Tums) 1,000 mg PO Q4H PRN PRN Reason: Heartburn or Indigestion Carvedilol (Coreg) 3.125 mg PO BID [facility] Last Admin: 01/01/18 09:02 Dose: 3.125 mg Clonidine (Catapres) 0.1 mg PO Q4H PRN PRN Reason: Systolic BP > 160 Dextrose/Water (Dextrose 50%) 25 gm SLOW IVP PRN PRN PRN Reason: Hypoglycemia Enoxaparin Sodium (Lovenox) 120 mg SC 0900,2100 [facility] Last Admin: 01/01/18 09:02 Dose: 120 mg Famotidine (Pepcid) 20 mg PO DAILY [facility] Last Admin: 01/01/18 09:03 Dose: 20 mg Furosemide (Lasix) 40 mg SLOW IVP 0600,1400 [facility] Last Admin: 01/01/18 06:18 Dose: Not Given Glucagon (Glucagon) 1 mg IM PRN PRN PRN Reason: Hypoglycemia Guaifenesin (Robitussin Sf) 200 mg PO Q4H PRN PRN Reason: Cough Hydralazine HCl (Apresoline) 10 mg SLOW IVP Q4H PRN PRN Reason: Systolic BP > 170 Dextrose/Water (D5w) 1,000 mls @ 0 mls/hr IV .Q0M PRN PRN Reason: Hypoglycemia Insulin Human Lispro (Humalog) 0 units SC .MODERATE SLIDING SC PRN PRN Reason: Moderate Correctional Scale Last Admin: 01/01/18 11:18 Dose: 6 unit Insulin Human Lispro (Humalog) 0 units SC .BEDTIME SLIDING SC PRN PRN Reason: Bedtime Correctional Scale Last Admin: 12/31/17 21:09 Dose: 3 unit Isosorbide Mononitrate (Imdur Er) 30 mg PO DAILY [facility] Last Admin: 01/01/18 09:02 Dose: 30 mg Loratadine (Claritin) 10 mg PO DAILYPRN PRN PRN Reason: Sinus Symptoms Niacin (Niaspan Er) 500 mg PO HS [facility] Last Admin: 12/31/17 21:08 Dose: 500 mg Nitroglycerin (Nitrostat) 0.4 mg SL Q5MIN PRN PRN Reason: Chest Pain Ondansetron HCl (Zofran) 4 mg IVP Q6H PRN PRN Reason: Nausea/Vomiting Senna (Senokot) 2 tab PO HSPRN PRN PRN Reason: Constipation Tramadol HCl (Ultram) 50 mg PO Q4H PRN PRN Reason: Moderate Pain (4-6)
[2018-01-01] MEDS: Atorvastatin Calcium 40 MG TAB PO SCH (21:54)
[2018-01-02 05:08] LABS: Anion Gap 18 mmol/L (10-20); BUN (Urea Nitrogen) 62 mg/dL (8.4-25.7); Calc. Creatinine Clearance 45 mL/min (70-130); Carbon Dioxide 22 mmol/L (23-31); Chloride 101 mmol/L (98-107); Estimated GFR-MDRD 28; Glucose 223 mg/dL (80-115); Potassium 3.8 mmol/L (3.5-5.1); Sodium 137 mmol/L (136-145)
[2018-01-02 05:21] LABS: Band 6 % (5-11); Hemoglobin 10.3 g/dL (14.0-18.0); Lymphocytes 23 % (21-51); MDiff Complete? YES; Mean Corpuscular HGB CONC 32.9 g/dL (32.0-36.0); Mean Corpuscular Hemoglobin 30.7 pg (27.0-31.0); Mean Corpuscular Volume 93.3 fL (78.0-98.0); Mean Platelet Volume 9.7 fL (7.4-10.4); Neutrophil 71 % (42-75); PLT Morphology Comment Appears Adequate; Platelet Count 180 thou/uL (130-400); RBC Distribution Width 15.5 % (11.5-14.5); Red Blood Cell (RBC) Count 3.35 mill/uL (4.70-6.10); White Blood Cell (WBC) Count 7.3 thou/uL (4.8-10.8)
[2018-01-02] MEDS ORDERED: Sodium Chloride 0.9% 10 ML ONE (08:31)
[2018-01-02] MEDS: Aspirin 325 MG TAB PO SCH (08:58)
[2018-01-02] MEDS: Alogliptin 6.25 MG TAB PO SCH (08:58)
[2018-01-02] MEDS: Carvedilol 3.125 MG TAB PO SCH ×2 (08:58→20:08)
[2018-01-02] MEDS: Famotidine 20 MG TAB PO SCH (09:00)
[2018-01-02] MEDS: Torsemide 20 MG TAB PO SCH (09:00)
[2018-01-02] MEDS: Enoxaparin Sodium 120 MG/0.8 ML SYRINGE SC SCH ×2 (09:01→20:10)
[2018-01-02] MEDS: HumaLOG 300 UNITS/3 ML VIAL SC PRN ×2 (09:08→11:48)
[2018-01-02] MEDS: Insulin NPH/Reg Insulin Hm 300 UNITS/3 ML VIAL SC SCH ×2 (10:27→23:37)
--- NOTE | 2018-01-02 12:09 | EKG ---
Test Reason : Blood Pressure : / mmHG Vent. Rate : 090 BPM Atrial Rate : 090 BPM P-R Int : 158 ms QRS Dur : 126 ms QT Int : 426 ms P-R-T Axes : 057 027 169 degrees QTc Int : 521 ms Sinus rhythm with occasional Premature ventricular complexes Possible Left atrial enlargement Non-specific intra-ventricular conduction block Cannot rule out Anterior infarct , age undetermined T wave abnormality, consider inferolateral ischemia Abnormal ECG When compared with ECG of 30-DEC-2017 01:47, (Unconfirmed) T wave inversion more evident in Inferior leads Confirmed by LAINEY DAMIAN ([id number]) on 01/02/2018 12:08:44 PM Referred By: PRIMITIVO Confirmed By:LAINEY DAMIAN
--- NOTE | 2018-01-02 16:06 | PDOC.PN ---
- Subjective Encounter Start Date: 01/02/18 Encounter Start Time: 08:00 Pt seen for followup re: combined CHF exacerbation. ACC/AHA Stage C. Feels better. No nausea or vomiting. - Objective MAR Reviewed: Yes Vital Signs & Weight: Vital Signs (12 hours) Temp Pulse Pulse Pulse Resp BP BP 01/02/18 13:47 87 20 01/02/18 12:00 98.0 F 84 18 01/02/18 10:04 86 85 127/63 115/68 01/02/18 08:00 97.8 F 84 16 BP BP Pulse Ox Pulse Ox Pulse Ox 01/02/18 13:47 96 01/02/18 12:00 104/70 96 01/02/18 10:04 94 L 94 L 01/02/18 08:00 108/63 95 Weight Weight 264 lb 7 oz I&O: 01/01/18 01/02/18 01/03/18 06:59 06:59 06:59 Intake Total 870 800 Output Total 1645 1275 Balance -775 -475 Result Diagrams: 01/02/18 04:01 01/02/18 04:01 Additional Labs: Accuchecks 01/02/18 01/02/18 01/02/18 11:28 10:32 05:31 POC Glucose 251 H 295 H 272 H 01/02/18 01/01/18 01/01/18 02:08 20:38 16:59 POC Glucose 235 H 219 H 255 H EKG Reviewed by me: Yes (Tele: NSR, SVT) Phys Exam - Physical Examination Obesity HEENT: moist MMs, sclera anicteric, oral pharynx no lesions, 2+ tonsils Neck: no nodes, supple, full ROM Unable to assess JVD Respiratory: no wheezing, no rhonchi Rajiv crackles Cardiovascular: RRR, no rub S1, S2 Gastrointestinal: soft, non-tender, positive bowel sounds distention Musculoskeletal: edema present Neurological: moves all 4 limbs Psychiatric: normal affect, A&O x 3 Dx/Plan (1) Acute exacerbation of CHF (congestive heart failure) Code(s): I50.9 - HEART FAILURE, UNSPECIFIED Status: Acute Qualifiers: Heart failure type: combined systolic and diastolic Qualified Code(s): I50.43 - Acute on chronic combined systolic (congestive) and diastolic ( congestive) heart failure Comment: Clinically improving. Renal function stabilizing. Continue diuretics. (2) NSTEMI (non-ST elevated myocardial infarction) Code(s): I21.4 - NON-ST ELEVATION (NSTEMI) MYOCARDIAL INFARCTION Status: Acute Comment: on Lovenox, telemetry monitoring (3) SVT (supraventricular tachycardia) Code(s): I47.1 - SUPRAVENTRICULAR TACHYCARDIA Status: Acute Comment: EP service consulted for possible EP studies (4) Ischemic cardiomyopathy Code(s): I25.5 - ISCHEMIC CARDIOMYOPATHY Status: Chronic Comment: s/p AICD (5) CKD (chronic kidney disease), stage III Code(s): N18.3 - CHRONIC KIDNEY DISEASE, STAGE 3 (MODERATE) Status: Chronic Comment: stabilizing (6) Dyslipidemia Code(s): E78.5 - HYPERLIPIDEMIA, UNSPECIFIED Status: Chronic Comment: continue statin (7) HTN (hypertension) Code(s): I10 - ESSENTIAL (PRIMARY) HYPERTENSION Status: Chronic Comment: controlled (8) DM2 (diabetes mellitus, type 2) Status: Chronic Comment: change to aggressive insulin sliding scale - Plan * . Review of Systems - Review of Systems Constitutional: negative: fever, chills, sweats, weakness, malaise Respiratory: negative: Cough, Shortness of Breath, SOB with Excertion, Pleuritic Pain, Wheezing Cardiovascular: other. negative: chest pain, palpitations, orthopnea, paroxysmal nocturnal dyspnea, edema, light headedness Gastrointestinal: negative: Nausea, Vomiting, Abdominal Pain, Diarrhea, Constipation, Melena, Hematochezia Genitourinary: negative: Dysuria, Frequency, Incontinence, Hematuria, Retention Skin: negative: Rash, Lesions, Carlos Alberto, Bruising - Medications/Allergies Allergies/Adverse Reactions: Allergies Allergy/AdvReac Type Severity Reaction Status Date / Time No Known Allergies Allergy Unverified 12/30/17 05:23 Medications: Current Medications Acetaminophen (Tylenol) 650 mg PO Q4H PRN PRN Reason: Headache/Fever or Pain Al Hydroxide/Mg Hydroxide (Maalox) 30 ml PO Q6H PRN PRN Reason: Heartburn or Indigestion Last Admin: 01/02/18 10:26 Dose: 30 ml Albuterol/Ipratropium (Duoneb) 3 ml NEB [id number] Last Admin: 01/02/18 13:47 Dose: 3 ml Alogliptin Benzoate (Alogliptin) 12.5 mg PO DAILY [facility] Last Admin: 01/02/18 08:58 Dose: 12.5 mg Aspirin (Aspirin) 325 mg PO DAILY [facility] Last Admin: 01/02/18 08:58 Dose: 325 mg Atorvastatin Calcium (Lipitor) 80 mg PO HS [facility] Last Admin: 01/01/18 21:54 Dose: 80 mg Benzonatate (Tessalon) 100 mg PO Q4H PRN PRN Reason: Cough Bisacodyl (Dulcolax) 10 mg PO DAILYPRN PRN PRN Reason: Constipation Calcium Carbonate (Tums) 1,000 mg PO Q4H PRN PRN Reason: Heartburn or Indigestion Carvedilol (Coreg) 1.5625 mg PO BID [facility] Last Admin: 01/02/18 08:58 Dose: 1.5625 mg Clonidine (Catapres) 0.1 mg PO Q4H PRN PRN Reason: Systolic BP > 160 Dextrose/Water (Dextrose 50%) 25 gm SLOW IVP PRN PRN PRN Reason: Hypoglycemia Enoxaparin Sodium (Lovenox) 120 mg SC 0900,2100 [facility] Last Admin: 01/02/18 09:01 Dose: 120 mg Famotidine (Pepcid) 20 mg PO DAILY [facility] Last Admin: 01/02/18 09:00 Dose: 20 mg Glucagon (Glucagon) 1 mg IM PRN PRN PRN Reason: Hypoglycemia Guaifenesin (Robitussin Sf) 200 mg PO Q4H PRN PRN Reason: Cough Hydralazine HCl (Apresoline) 10 mg SLOW IVP Q4H PRN PRN Reason: Systolic BP > 170 Dextrose/Water (D5w) 1,000 mls @ 0 mls/hr IV .Q0M PRN PRN Reason: Hypoglycemia Insulin Human Isoph/Insulin Regular (Humulin 70/30) 35 units SC DAILY [facility] Last Admin: 01/02/18 10:27 Dose: 35 unit Insulin Human Isoph/Insulin Regular (Humulin 70/30) 30 units SC QPM [facility] Insulin Human Lispro (Humalog) 0 units SC .MODERATE SLIDING SC PRN PRN Reason: Moderate Correctional Scale Last Admin: 01/02/18 11:48 Dose: 6 unit Insulin Human Lispro (Humalog) 0 units SC .BEDTIME SLIDING SC PRN PRN Reason: Bedtime Correctional Scale Last Admin: 01/01/18 21:56 Dose: 2 unit Isosorbide Mononitrate (Imdur Er) 30 mg PO DAILY [facility] Last Admin: 01/02/18 09:00 Dose: 30 mg Loratadine (Claritin) 10 mg PO DAILYPRN PRN PRN Reason: Sinus Symptoms Niacin (Niaspan Er) 500 mg PO HS [facility] Last Admin: 01/01/18 21:54 Dose: 500 mg Nitroglycerin (Nitrostat) 0.4 mg SL Q5MIN PRN PRN Reason: Chest Pain Ondansetron HCl (Zofran) 4 mg IVP Q6H PRN PRN Reason: Nausea/Vomiting Senna (Senokot) 2 tab PO HSPRN PRN PRN Reason: Constipation Torsemide (Demadex) 20 mg PO DAILY [facility] Last Admin: 01/02/18 09:00 Dose: 20 mg Tramadol HCl (Ultram) 50 mg PO Q4H PRN PRN Reason: Moderate Pain (4-6)
[2018-01-02] MEDS ORDERED: HumaLOG 300 UNITS/3 ML VIAL SC PRN (16:13)
[2018-01-02] MEDS: Atorvastatin Calcium 40 MG TAB PO SCH (20:08)
[2018-01-02 22:17] LABS: Platelet Count 186 thou/uL (130-400)
--- NOTE | 2018-01-02 23:55 | CON ---
DATE OF CONSULTATION: 01/02/2018 REFERRING [employer]ICE LIAISON OFFICER: Selvin Ivan M.D. REASON FOR CONSULTATION: Ischemic cardiomyopathy with severely reduced ejection fraction less than 3 5% in LV dyssynchrony. HISTORY OF PRESENT ILLNESS: Mr. Grullon is a very pleasant 67-year-old gentleman admitted for shortne ss of breath. He has a history of ischemic cardiomyopathy, originally diagnosed about 3 years ago an d has documented most recently at 30%-35%. He has a dual chamber ICD in place, but has had increasin g heart failure symptoms with increasing shortness of breath and has received some IV Lasix that has already been effective in relieving his symptoms and successful with diuresing. Overall, Mr. Grullon is feeling well. He denies any heart racing, palpitations, chest pain, pressure, syncope, near syncope or stroke like symptoms. He denies any perceived ICD discharges. His only co mplaint today is the progressive shortness of breath and heart failure exacerbation as detailed above . The patient has been followed by our clinic, but has not been seen since 09/2015. PAST MEDICAL HISTORY: 1. Ischemic cardiomyopathy with an ejection fraction of 30%-35% by echo in 2014. 2. Dual chamber ICD in situ. 3. Coronary artery disease. 4. Hyperlipidemia. 5. Hypertension. 6. Gastroesophageal reflux disease. 7. Chronic kidney disease. 8. Type 2 diabetes. 9. Medical noncompliance. 10. Obstructive sleep apnea. 11. Morbid obesity. PAST SURGICAL HISTORY: 1. Heart catheterization. 2. Tracheostomy in the past. 3. Dual chamber ICD placement. FAMILY HISTORY: Negative for sudden cardiac . SOCIAL HISTORY: . Negative for alcohol or tobacco use. REVIEW OF SYSTEMS: A 12-point review of systems is conducted and negative except that listed above i n the HPI. HOME MEDICATIONS: Januvia 50 mg daily, potassium chloride 10 mEq b.i.d., carvedilol 3.125 mg p.o. b. i.d., aspirin 81 mg daily, torsemide 20 mg daily, niacin daily, Imdur 30 mg daily, atorvastatin 80 mg at bedtime. ALLERGIES: No known allergies. PHYSICAL EXAMINATION: VITAL SIGNS: Temperature 98.2, pulse 90, respirations 18, oxygen is 100% on room air, blood pressure 118/67. GENERAL: He is awake, alert, and oriented x3, in no apparent distress. HEENT: Normocephalic, atraumatic. Sclerae are anicteric. Ears are intact. NECK: Supple, without jugular venous distention. Thyroid is nonpalpable. LUNGS: Clear to auscultation. CARDIOVASCULAR: Heart rate is regularly regular with no overt murmurs, rubs or gallops. PMI is nond isplaced. EXTREMITIES: Warm and dry to touch without clubbing or cyanosis, but 1+ bilateral lower extremity ed annie is seen. Device is seen at the left infraclavicular fossa drainage. NEUROLOGIC: Exam is grossly intact and nonfocal. DATABASE: Recent laboratory was reviewed. WBC 7.3, hemoglobin 10.3, hematocrit 31.3, platelet count is 180. Chemistry: Potassium 3.8, BUN is 62, creatinine 2.75. The echocardiogram on 12/31/2017 re veals ejection fraction 10%-15%, grade 1/3 diastolic dysfunction, mildly dilated left atrium, moderat e to severe mitral regurgitation, but later also mentions grade 3/3 diastolic dysfunction of the left ventricle. Review of telemetry and EKGs reveals sinus rhythm. DEVICE CHECK: Patient has [employer]k XT dual chamber ICD. Device was interrogated and does rev eal a single episode of nonsustained VT that was 1 second in November. Otherwise, essentially normal int errogation. IMPRESSION: 1. Ischemic cardiomyopathy with chronic systolic heart failure. 2. Congestive heart failure with progressive shortness of breath and worsening symptoms of late. 3. of a dual chamber ICD with normal operation. 3. Obesity. 4. Coronary artery disease. 5. Hypertension. 6. Morbid obesity. RECOMMENDATIONS: Mr. Grullon's dual chamber ICD is functioning normally; however, we find that his he art failure is progressive and he is beginning to experience exacerbations and now would benefit from upgrading to biventricular ICD cardiac resynchronization therapy. This was discussed with him and r isks, benefits, and alternatives were outlined. The patient voices understanding and wishes to move forward with upgrade to a biventricular device, which will be performed either tomorrow or Sunday onc e this is clarified with Dr. Zarate's schedule. In the meantime, we will keep him n.p.o. tomorrow mo rning except for medications in case Dr. Zarate is able to go early tomorrow morning, otherwise, we w ill resume his diet and device will be upgraded on Sunday. All questions have been answered. The bhavani wilkinson voices understanding and agreed to the plan of care. Thank you for allowing us to participate in the care of this patient.
[2018-01-03 04:47] LABS: #Basophils 0.1 thou/uL (0.0-0.2); #Eosinphils 0.2 thou/uL (0.0-0.7); #Lymphocytes 1.3 thou/uL (1.20-3.40); #Monocytes 0.4 thou/uL (0.11-0.59); #Neutrophils 5.1 thou/uL (1.40-6.50); %Basophils 0.7 % (0.0-1.0); %Lymphocytes 18.4 % (21.0-51.0); %Monocytes 6.1 % (0.0-10.0); %Neutrophils 71.8 % (42.0-75.0); Hemoglobin 10.4 g/dL (14.0-18.0); Mean Corpuscular HGB CONC 33.5 g/dL (32.0-36.0); Mean Corpuscular Hemoglobin 31.2 pg (27.0-31.0); Mean Platelet Volume 9.7 fL (7.4-10.4); Platelet Count 179 thou/uL (130-400); RBC Distribution Width 15.7 % (11.5-14.5); Red Blood Cell (RBC) Count 3.33 mill/uL (4.70-6.10); White Blood Cell (WBC) Count 7.1 thou/uL (4.8-10.8)
[2018-01-03 05:05] LABS: Anion Gap 17 mmol/L (10-20); BUN (Urea Nitrogen) 56 mg/dL (8.4-25.7); Calc. Creatinine Clearance 52 mL/min (70-130); Calcium 9.3 mg/dL (7.8-10.44); Carbon Dioxide 23 mmol/L (23-31); Chloride 104 mmol/L (98-107); Estimated GFR-MDRD 33; Glucose 132 mg/dL (80-115); Potassium 3.7 mmol/L (3.5-5.1); Sodium 140 mmol/L (136-145)
[2018-01-03] MEDS: Torsemide 20 MG TAB PO SCH (08:18)
[2018-01-03] MEDS: Carvedilol 3.125 MG TAB PO SCH ×2 (08:18→20:52)
[2018-01-03] MEDS: Famotidine 20 MG TAB PO SCH (08:18)
[2018-01-03] MEDS: Alogliptin 6.25 MG TAB PO SCH (08:19)
[2018-01-03] MEDS: Enoxaparin Sodium 120 MG/0.8 ML SYRINGE SC SCH ×2 (08:20→20:52)
[2018-01-03] MEDS: Aspirin 325 MG TAB PO SCH (08:20)
[2018-01-03] MEDS: Insulin NPH/Reg Insulin Hm 300 UNITS/3 ML VIAL SC SCH ×2 (08:21→20:54)
--- NOTE | 2018-01-03 16:07 | PDOC.CTH ---
Cardiology Progress Note - Subjective EP progress note: Patient sen and examined. No new cardiac concerns or complaints. NPO for upgrade to BiV ICD. no heart racing, palpitations, chest pain, dizziness, or passing out. Breathing easier today. - Objective Vital Signs Temp Pulse Resp BP BP BP Pulse Ox 01/03/18 15:25 98.5 F 81 16 106/56 L 97 01/03/18 12:43 80 16 91 L 01/03/18 12:00 98.7 F 80 16 117/65 98 01/03/18 08:00 98.1 F 92 18 112/73 96 01/03/18 06:30 83 16 95 Weight 267 lb 1 oz 01/02/18 01/03/18 01/04/18 06:59 06:59 06:59 Intake Total 800 1570 Output Total 1275 1350 Balance -475 220 - Physical Examination General/Neuro: alert & oriented x3, NAD Neck: carotid US brisk, no JVD present Lungs: CTA, unlabored respirations Heart: PMI normal, RRR Abdomen: no HSM, NT/ND, soft - Telemetry Telemetry Rhythm: NSR - Labs Result Diagrams: 01/04/18 03:58 01/04/18 03:58 Troponin/CKMB CK-MB (CK-2) 9.0 ng/mL (0-6.6) H* 12/30/17 02:01 Troponin I 2.027 ng/mL (< 0.028) H* 12/30/17 08:12 - Assessment/Plan 1. ICM with acute on chronic congestive heart failure. EF previously 15%, partially recovered to 35% and now 10-15% again. 2. Dual chamber ICD with normal operation 3. Morbid obesity Plan for upgrade to BiV ICD either this evening or tomorrow. Patient aware of timing/situation. All questions answered. Consents to upgrade.
--- NOTE | 2018-01-03 17:22 | PDOC.PN ---
- Subjective Encounter Start Date: 01/03/18 Encounter Start Time: 07:20 Pt seen for followup re: combined CHF exacerbation. Denies chest pain or shortness of breath. Reports light-headedness when standing up. - Objective MAR Reviewed: Yes Vital Signs & Weight: Vital Signs (12 hours) Temp Pulse Resp BP BP BP Pulse Ox 01/03/18 15:25 98.5 F 81 16 106/56 L 97 01/03/18 12:43 80 16 91 L 01/03/18 12:00 98.7 F 80 16 117/65 98 01/03/18 08:00 98.1 F 92 18 112/73 96 01/03/18 06:30 83 16 95 Weight Weight 267 lb 1 oz I&O: 01/02/18 01/03/18 01/04/18 06:59 06:59 06:59 Intake Total 800 1570 Output Total 1275 1350 Balance -475 220 Result Diagrams: 01/03/18 04:00 01/03/18 04:00 Additional Labs: Accuchecks 01/03/18 01/03/18 01/03/18 10:57 08:24 05:25 POC Glucose 126 H 123 H 105 01/03/18 01/02/18 01/02/18 02:10 23:35 23:02 POC Glucose 138 H 119 H 127 H 01/02/18 01/02/18 20:46 17:07 POC Glucose 141 H 136 H EKG Reviewed by me: Yes (Tele: NSR) Phys Exam - Physical Examination Morbid obesity HEENT: moist MMs Neck: supple Respiratory: clear to auscultation bilateral Cardiovascular: RRR Gastrointestinal: soft Musculoskeletal: edema present Neurological: moves all 4 limbs Psychiatric: normal affect Dx/Plan (1) Acute exacerbation of CHF (congestive heart failure) Code(s): I50.9 - HEART FAILURE, UNSPECIFIED Status: Acute Qualifiers: Heart failure type: combined systolic and diastolic Qualified Code(s): I50.43 - Acute on chronic combined systolic (congestive) and diastolic ( congestive) heart failure Comment: Clinically improving. Continue diuretics. Pt for device upgrade. (2) NSTEMI (non-ST elevated myocardial infarction) Code(s): I21.4 - NON-ST ELEVATION (NSTEMI) MYOCARDIAL INFARCTION Status: Acute Comment: continue Lovenox (3) Ischemic cardiomyopathy Code(s): I25.5 - ISCHEMIC CARDIOMYOPATHY Status: Chronic Comment: s/p AICD (4) CKD (chronic kidney disease), stage III Code(s): N18.3 - CHRONIC KIDNEY DISEASE, STAGE 3 (MODERATE) Status: Chronic Comment: stabilizing (5) Dyslipidemia Code(s): E78.5 - HYPERLIPIDEMIA, UNSPECIFIED Status: Chronic Comment: continue statin (6) HTN (hypertension) Code(s): I10 - ESSENTIAL (PRIMARY) HYPERTENSION Status: Chronic Comment: controlled (7) DM2 (diabetes mellitus, type 2) Status: Chronic Comment: reasonably controlled (8) SVT (supraventricular tachycardia) Code(s): I47.1 - SUPRAVENTRICULAR TACHYCARDIA Status: Resolved - Plan * . Review of Systems - Review of Systems Respiratory: negative: Cough, Shortness of Breath, SOB with Excertion, Pleuritic Pain, Wheezing Cardiovascular: negative: chest pain, palpitations, orthopnea, paroxysmal nocturnal dyspnea, edema, light headedness Gastrointestinal: negative: Nausea, Vomiting, Abdominal Pain, Diarrhea, Constipation, Melena, Hematochezia - Medications/Allergies Allergies/Adverse Reactions: Allergies Allergy/AdvReac Type Severity Reaction Status Date / Time No Known Allergies Allergy Unverified 12/30/17 05:23 Medications: Current Medications Acetaminophen (Tylenol) 650 mg PO Q4H PRN PRN Reason: Headache/Fever or Pain Al Hydroxide/Mg Hydroxide (Maalox) 30 ml PO Q6H PRN PRN Reason: Heartburn or Indigestion Last Admin: 01/02/18 10:26 Dose: 30 ml Albuterol/Ipratropium (Duoneb) 3 ml NEB [id number] [facility] Last Admin: 01/03/18 12:43 Dose: 3 ml Alogliptin Benzoate (Alogliptin) 12.5 mg PO DAILY [facility] Last Admin: 01/03/18 08:19 Dose: Not Given Aspirin (Aspirin) 325 mg PO DAILY [facility] Last Admin: 01/03/18 08:20 Dose: Not Given Atorvastatin Calcium (Lipitor) 80 mg PO HS [facility] Last Admin: 01/02/18 20:08 Dose: 80 mg Benzonatate (Tessalon) 100 mg PO Q4H PRN PRN Reason: Cough Bisacodyl (Dulcolax) 10 mg PO DAILYPRN PRN PRN Reason: Constipation Calcium Carbonate (Tums) 1,000 mg PO Q4H PRN PRN Reason: Heartburn or Indigestion Carvedilol (Coreg) 1.5625 mg PO BID [facility] Last Admin: 01/03/18 08:18 Dose: 1.5625 mg Clonidine (Catapres) 0.1 mg PO Q4H PRN PRN Reason: Systolic BP > 160 Dextrose/Water (Dextrose 50%) 25 gm SLOW IVP PRN PRN PRN Reason: Hypoglycemia Enoxaparin Sodium (Lovenox) 120 mg SC 0900,2100 [facility] Last Admin: 01/03/18 08:20 Dose: Not Given Famotidine (Pepcid) 20 mg PO DAILY [facility] Last Admin: 01/03/18 08:18 Dose: 20 mg Glucagon (Glucagon) 1 mg IM PRN PRN PRN Reason: Hypoglycemia Guaifenesin (Robitussin Sf) 200 mg PO Q4H PRN PRN Reason: Cough Hydralazine HCl (Apresoline) 10 mg SLOW IVP Q4H PRN PRN Reason: Systolic BP > 170 Dextrose/Water (D5w) 1,000 mls @ 0 mls/hr IV .Q0M PRN PRN Reason: Hypoglycemia Insulin Human Isoph/Insulin Regular (Humulin 70/30) 35 units SC DAILY [facility] Last Admin: 01/03/18 08:21 Dose: Not Given Insulin Human Isoph/Insulin Regular (Humulin 70/30) 30 units SC QPM [facility] Last Admin: 01/02/18 23:37 Dose: Not Given Insulin Human Lispro (Humalog) 0 units SC .BEDTIME SLIDING SC PRN PRN Reason: Bedtime Correctional Scale Last Admin: 01/01/18 21:56 Dose: 2 unit Insulin Human Lispro (Humalog) 0 units SC .AGGRESSIVE SLIDING PRN PRN Reason: Aggressive Correctional Scale Isosorbide Mononitrate (Imdur Er) 30 mg PO DAILY [facility] Last Admin: 01/03/18 08:17 Dose: 30 mg Loratadine (Claritin) 10 mg PO DAILYPRN PRN PRN Reason: Sinus Symptoms Niacin (Niaspan Er) 500 mg PO HS [facility] Last Admin: 01/02/18 20:10 Dose: 500 mg Nitroglycerin (Nitrostat) 0.4 mg SL Q5MIN PRN PRN Reason: Chest Pain Ondansetron HCl (Zofran) 4 mg IVP Q6H PRN PRN Reason: Nausea/Vomiting Senna (Senokot) 2 tab PO HSPRN PRN PRN Reason: Constipation Torsemide (Demadex) 20 mg PO DAILY [facility] Last Admin: 01/03/18 08:18 Dose: 20 mg Tramadol HCl (Ultram) 50 mg PO Q4H PRN PRN Reason: Moderate Pain (4-6)
[2018-01-03] MEDS: Atorvastatin Calcium 40 MG TAB PO SCH (20:52)
[2018-01-04 05:01] LABS: Anion Gap 14 mmol/L (10-20); BUN (Urea Nitrogen) 48 mg/dL (8.4-25.7); Calc. Creatinine Clearance 55 mL/min (70-130); Carbon Dioxide 25 mmol/L (23-31); Chloride 100 mmol/L (98-107); Estimated GFR-MDRD 35; Glucose 140 mg/dL (80-115); Potassium 3.5 mmol/L (3.5-5.1); Sodium 135 mmol/L (136-145)
[2018-01-04 06:36] LABS: Band 10 % (5-11); Eosinophils 2 % (0-10); Hemoglobin 10.3 g/dL (14.0-18.0); Lymphocytes 21 % (21-51); MDiff Complete? YES; Mean Corpuscular HGB CONC 32.3 g/dL (32.0-36.0); Mean Corpuscular Hemoglobin 29.9 pg (27.0-31.0); Mean Corpuscular Volume 92.5 fL (78.0-98.0); Mean Platelet Volume 10.3 fL (7.4-10.4); Monocytes 8 % (0-10); Neutrophil 59 % (42-75); Platelet Count 172 thou/uL (130-400); RBC Distribution Width 15.7 % (11.5-14.5); Red Blood Cell (RBC) Count 3.46 mill/uL (4.70-6.10); White Blood Cell (WBC) Count 5.6 thou/uL (4.8-10.8)
[2018-01-04] MEDS ORDERED: CEFAZOLIN/Water 2 GM/20 ML SYRINGE ONE (06:59)
[2018-01-04] MEDS ORDERED: Gentamicin 80 MG/2 ML VIAL ONE (06:59)
[2018-01-04] MEDS ORDERED: CEFAZOLIN 1 GM VIAL ONE (06:59)
[2018-01-04] MEDS: Carvedilol 3.125 MG TAB PO SCH (07:02)
[2018-01-04] MEDS ORDERED: Iopamidol 370 76% 50 ML VIAL FS ONE (08:23)
[2018-01-04] MEDS ORDERED: Midazolam HCl 2 mg/2 ml Vial ONE (08:40)
[2018-01-04] MEDS ORDERED: Morphine Sulfate 2 MG/ML SYRINGE SLOW IVP PRN (09:28)
[2018-01-04] MEDS ORDERED: Promethazine HCl 25 MG/ML VIAL SLOW IVP PRN (09:28)
[2018-01-04] MEDS ORDERED: Ondansetron HCl/PF 4 MG/2 ML Vial IVP PRN (09:28)
[2018-01-04] MEDS ORDERED: Promethazine HCl 25 MG/ML VIAL IM PRN (09:28)
--- NOTE | 2018-01-04 09:40 | OP ---
DATE OF PROCEDURE: 01/04/2018. PROCEDURE: 1. Upgrade of a dual chamber defibrillator to a dual chamber resynchronization defibrillator. 2. Repositioning of the defibrillator pocket above the pectoralis major muscle. 3. Addition of a rate sense lead in the RV septum. CLINICAL INDICATION: 1. Ventricular dyssynchrony with worsening heart failure. 2. Chronic ICD therapy for chronic ischemic cardiomyopathy. BUILDING CARPENTER: Fish Zarate M.D. ASA CLASSIFICATION: 3. ANESTHESIA: Total IV anesthesia per Anesthesiology. ADDITIONAL CARDIAC MEDICATIONS: None. ESTIMATED BLOOD LOSS: Less than 10 mL. TOTAL FLUOROSCOPY TIME: 11 minutes. ACUTE COMPLICATIONS: None. METHODS: After informed consent was obtained, the patient taken to the EP lab in fasting state. Lef t shoulder prepped and draped. A venogram was performed using a 15 blade, a 3 inch incision was made excising the previous scar with Bovie and blunt dissection was used to cut down to the pectoralis mu scle. The sternal and clavicular heads were divided and the device was removed from the subpectoral space. Adhesions were released and the leads were dissected down to their insertion points. Hemosta sis was confirmed. A pocket was formed in the pectoralis fascia. A micropuncture needle was placed on 2 occasions in the left axillary vein over the second rib. Wires were inserted into the central v enous system. The wires used to place 2 long sheaths into the central venous system. The sheaths we re used to place a lead into the lateral branch of the coronary sinus for pacing of the left ventricl e and septal pacing for optimal ventricular synchronization. Excellent pacing and sensing were confi rmed. Lead was secured to pectoral fascia with 2-0 silk. The wound was irrigated. Leads were conne cted to the appropriate ports, the resynchronization defibrillator was inserted in the pocket with gr aphics up. DFT was tested and confirmed. Pocket was closed with 2-0 and 4-0 Vicryl. Skin was close d with simple running subcuticular 5-0 Monocryl. Dermabond was applied across the wound. RESULTS: 1. Pacing lead thresholds; atrial threshold 0.5 volts at 0.4 milliseconds, impedance 323 ohms. RV t hreshold 0.75 volts at 0.4 milliseconds, impedance 456 ohms. LV threshold 0.5 volts at 0.4 milliseco nds, impedance 342 ohms, 10 volts did not stimulate phrenic nerve or diaphragm from any leak configur ation. 2. Signal analysis; P-wave amplitude 3.4 millivolts. R-wave amplitude 8.9 millivolts. 3. ____ induction ventricular fibrillation was induced with a T-wave shock method, 50 joules were de livered restoring sinus rhythm, charge time 3.2 seconds. Shock lead impedance 36 ohms 100% sensing w as seen at 1.2 millivolts sensitivity. 4. Serial numbers; the device was a Medtronic model DTBA 1Q1 [id number]. Atrial lead and Medtronic model 5076-45 sternal ____ [id number] implanted 10/30/2007. The RV defibrillator lead was a Outski c model 6947-65 serial number [id number], ____ implanted 10/30/2007. The rate sense component of thi s lead was capped and placed in the floor of the pocket. The rate sense lead for the RV placed in th e septum was a Medtronic model 5076-58, serial number [id number]. The LV lead is Medtronic model 42 98-78 serial number [id number]. IMPRESSION: 1. Successful upgrade of a dual chamber defibrillator to a resynchronization defibrillator with repo sitioning of the device pocket to the pectoralis fascia region. 2. Successful revision of the RV lead pace sense component. RECOMMENDATION: Antibiotic prophylaxis.
--- NOTE | 2018-01-04 10:23 | RAD ---
CHEST 1 VIEW: Date: 01/04/18 HISTORY: AICD. COMPARISON: Chest dated 12/30/17. FINDINGS: There is a new AICD. Heart size enlarged. Mild edema. Small focus of subcutaneous gas over the right hemithorax soft tissues. IMPRESSION: 1. Cardiomegaly and mild pulmonary venous congestion. 2. No pneumothorax. POS: [facility]
[2018-01-04] MEDS ORDERED: Midazolam HCl 5 mg/5 ml Vial ONE (10:25)
[2018-01-04] MEDS ORDERED: Ketamine 50 MG/ML VIAL ONE (10:25)
[2018-01-04] MEDS: Alogliptin 6.25 MG TAB PO SCH (10:32)
[2018-01-04] MEDS: Enoxaparin Sodium 120 MG/0.8 ML SYRINGE SC SCH (10:32)
[2018-01-04] MEDS: Insulin NPH/Reg Insulin Hm 300 UNITS/3 ML VIAL SC SCH (10:32)
[2018-01-04] MEDS: Aspirin 325 MG TAB PO SCH (10:33)
[2018-01-04] MEDS: Torsemide 20 MG TAB PO SCH (10:33)
[2018-01-04] MEDS: Famotidine 20 MG TAB PO SCH (10:33)
--- NOTE | 2018-01-04 13:41 | PDOC.CTH ---
Cardiology Progress Note - Subjective EP progress note: Patient seen post implant. Doing well with mild tenderness at implant site. ice pack in place. Patient reports easier breathing since upgrade this AM. No other EP concerns or complaints. - Objective Vital Signs Temp Pulse Resp BP BP Pulse Ox 01/04/18 12:00 97.8 F 88 16 117/78 99 01/04/18 08:00 97.3 F L 92 18 99 01/04/18 07:05 97.3 F L 92 18 115/61 99 01/04/18 06:46 96 01/04/18 06:44 82 16 96 01/04/18 04:00 98.2 F 90 14 100/62 98 Weight 266 lb 7 oz 01/03/18 01/04/18 01/05/18 06:59 06:59 06:59 Intake Total 1570 810 85 Output Total 1350 800 0 Balance 220 10 85 - Physical Examination General/Neuro: alert & oriented x3, NAD Neck: carotid US brisk, no JVD present Lungs: CTA, unlabored respirations (breathing easier since upgrade to BANKRUPTCY ASSISTANT) Heart: PMI normal, RRR Abdomen: no HSM, NT/ND Other PE findings: Left chest wall incision CDI, mild swelling - Telemetry Telemetry Rhythm: NSR, BANKRUPTCY ASSISTANT - Labs Result Diagrams: 01/04/18 03:58 01/04/18 03:58 Troponin/CKMB CK-MB (CK-2) 9.0 ng/mL (0-6.6) H* 12/30/17 02:01 Troponin I 2.027 ng/mL (< 0.028) H* 12/30/17 08:12 - Assessment/Plan 1. ICM with acute on chronic congestive heart failure. EF previously 15%, partially recovered to 35% and now 10-15% again. 2. Upgrade to BiV ICD this AM. additional RV pace/sense lead placed for optimal BANKRUPTCY ASSISTANT. Tolerated procedure well. Site stable with mild swelling. Ice pack PRN and place pressure dressing if hematoma suspected (as per post implant orders). Post implant antibiotics as ordered. 3. Morbid obesity Dylan BLANCO follow up in 1-2 weeks for wound check/device check. Cleared for DC by EP. Signing off.
--- NOTE | 2018-01-04 16:31 | DIS ---
DATE OF ADMISSION: 12/30/2017 DATE OF DISCHARGE: 01/04/2018 PRIMARY CARE PROVIDER: Kylee Pham D.O. DISCHARGE DIAGNOSES: 1. Acute exacerbation of congestive heart failure, combined systolic and diastolic. 2. Cyn-CB-hcpsoltyx myocardial infarction. 3. Ischemic cardiomyopathy. 4. Supraventricular tachycardia versus atrial flutter. CONSULTATIONS DURING THIS HOSPITALIZATION: Cardiology, Dr. Swift; Electrophysiology, Dr. Zarate. CONDITION OF THE PATIENT ON THE DAY OF DISCHARGE: Stable. I assessed Mr. Grullon on the day of discharge. He denies chest pain or shortness of breath. Vital signs are stable. S1 and S2 are heard, regular. Lungs are clear to auscultation. DISCHARGE MEDICATIONS: Cephalexin and [place] as prescribed by Electrophysiology service. Aspirin dose has been increased to 325 mg daily. Coreg dose has been decreased to 1.5625 mg 2 times a day. Otherwise, he is advised to continue the rest of the medications as dictated on Dr. Singh's history and physical note dated 12/30/2017. Potassium chloride 20 mEq a day has been decreased to 10 mEq a day. He is not on QUINN inhibitor due to contraindication of renal failure. HOSPITAL COURSE: Mr. Grullon is a pleasant 67-year-old gentleman, who was admitted to [facility] on 12/30/2017 for acute on chronic congestive heart failure. He was seen by Cardiology Service. He was treated with intravenous diuretics. He also had elevated troponins consistent with pmn-YO-wvdcnhgia myocardial infarction. He was treated with Lovenox. A 2D echocardiogram showed left ventricular ejection fraction of 10%-15% and grade 1/3 diastolic dysfunction. He also had runs of nonsustained supraventricular tachycardia versus atrial flutter. However, his beta clara could not be up-titrated secondary to hypotension. His beta clara dose was actually decreased during this hospitalization. He was also seen by Electrophysiology service. On 01/04/2018, he underwent an upgrade of dual chamber defibrillator to dual chamber resynchronization defibrillator. He has been cleared for discharge by Cardiology and Electrophysiology services. On the day of discharge, he has sodium 135, potassium 3.5, blood urea nitrogen 48, creatinine 2.31, white count 5600, hemoglobin 10.3, and platelet count 172, 000. Many thanks for allowing me to participate in your patient's care. Please feel free to contact me with any questions or concerns. DISCHARGE DESTINATION: Home. TOTAL AMOUNT OF TIME SPENT COORDINATING THIS DISCHARGE: 33 minutes. MARY ANNE
[2018-01-04 16:40] VITALS: BP 100/29; TEMP 98.5
== END 2018-01-04 18:36 | disposition home or self-care (01) | DRG 226 ==
LOC: ERS 01:39 → 2NO 05:13
PROVIDERS: ADMIT Internal Medicine; ATTEND Internal Medicine
PROC: 02HL3KZ Insertion of Defibrillator Lead into Left Ventricle, Percutaneous Approach (ICD-10-PCS; principal; 2018-01-04)
PROC: 0JH609Z Insertion of Cardiac Resynchronization Defibrillator Pulse Generator into Chest Subcutaneous Tissue and Fascia, Open Approach (ICD-10-PCS; 2018-01-04)
PROC: 0JPT0PZ Removal of Cardiac Rhythm Related Device from Trunk Subcutaneous Tissue and Fascia, Open Approach (ICD-10-PCS; 2018-01-04)
PROC: 02HK3KZ Insertion of Defibrillator Lead into Right Ventricle, Percutaneous Approach (ICD-10-PCS; 2018-01-04)
PROC: 02PA3MZ Removal of Cardiac Lead from Heart, Percutaneous Approach (ICD-10-PCS; 2018-01-04)
DX: I21.4 Non-ST elevation (NSTEMI) myocardial infarction (principal); I50.43 Acute on chronic combined systolic (congestive) and diastolic (congestive) heart failure; I47.1 Supraventricular tachycardia; I48.92 Unspecified atrial flutter; I13.0 Hypertensive heart and chronic kidney disease with heart failure and stage 1 through stage 4 chronic kidney disease, or unspecified chronic kidney disease; I25.5 Ischemic cardiomyopathy; I25.10 Atherosclerotic heart disease of native coronary artery without angina pectoris; E11.65 Type 2 diabetes mellitus with hyperglycemia; E78.5 Hyperlipidemia, unspecified; K21.9 Gastro-esophageal reflux disease without esophagitis; G47.33 Obstructive sleep apnea (adult) (pediatric); E66.01 Morbid (severe) obesity due to excess calories; Z68.36 Body mass index [BMI] 36.0-36.9, adult; N18.9 Chronic kidney disease, unspecified; E11.22 Type 2 diabetes mellitus with diabetic chronic kidney disease; Z91.14 Patient's other noncompliance with medication regimen; Z79.84 Long term (current) use of oral hypoglycemic drugs; Z79.82 Long term (current) use of aspirin; Z79.899 Other long term (current) drug therapy
CPT/HCPCS: 33216; 33224; 33249; 36005; 36415; 36416; 71045; 75820; 80048; 80053; 80061; 81003; 81015; 82553; 82565; 83036; 83605; 83880; 84484; 85014; 85018; 85025; 85049; 93005; 93010; 93306; 93641; 93798; 94640; 96372; 96374; A4216; C1730; C1882; C1898; C1900; J0690; J1580; J1650; J1940; J2250; J7620

== ENCOUNTER 2018-01-29 13:31 | Inpatient (IN) | payer BC ==
[~2018-01-29 13:31] MED LIST: ISOVUE-370 76%-LOCM 1 ML ONE
[2018-01-29 14:11] LABS: #Basophils 0.1 thou/uL (0.0-0.2); #Eosinphils 0.2 thou/uL (0.0-0.7); #Lymphocytes 0.9 thou/uL (1.20-3.40); #Monocytes 0.4 thou/uL (0.11-0.59); #Neutrophils 3.1 thou/uL (1.40-6.50); %Basophils 1.5 % (0.0-1.0); %Eosinophils 4.2 % (0.0-10.0); %Lymphocytes 19.1 % (21.0-51.0); %Monocytes 7.7 % (0.0-10.0); %Neutrophils 67.5 % (42.0-75.0); Hemoglobin 10.2 g/dL (14.0-18.0); Mean Corpuscular HGB CONC 31.8 g/dL (32.0-36.0); Mean Corpuscular Hemoglobin 30.4 pg (27.0-31.0); Mean Corpuscular Volume 95.6 fL (78.0-98.0); Mean Platelet Volume 9.2 fL (7.4-10.4); Platelet Count 167 thou/uL (130-400); Red Blood Cell (RBC) Count 3.35 mill/uL (4.70-6.10); White Blood Cell (WBC) Count 4.6 thou/uL (4.8-10.8)
--- NOTE | 2018-01-29 14:22 | RAD ---
PORTABLE CHEST: Date: 01/29/18 HISTORY: Chest pain and shortness of breath. COMPARISON: 01/04/18 study. FINDINGS: Heart size appears slightly enlarged. Internal defibrillator device is present. Lungs are clear of in filtrates. There are no signs of failure. IMPRESSION: Cardiomegaly. No signs of overt failure. Mild vascular prominence. POS: [facility]
[2018-01-29 14:34] LABS: ALT (SGPT) 16 U/L (8-55); AST (SGOT) 28 U/L (5-34); Alkaline Phosphatase 93 U/L (40-150); Anion Gap 12 mmol/L (10-20); BUN (Urea Nitrogen) 34 mg/dL (8.4-25.7); Bilirubin, Total 0.7 mg/dL (0.2-1.2); CK (CPK) 292 U/L (30-200); Calc. Creatinine Clearance 0 mL/min (70-130); Calcium 9.3 mg/dL (7.8-10.44); Carbon Dioxide 23 mmol/L (23-31); Chloride 110 mmol/L (98-107); Estimated GFR-MDRD 39; Globulin 3.2 g/dL (2.4-3.5); Glucose 110 mg/dL (80-115); Lipase 21 U/L (8-78); Potassium 3.9 mmol/L (3.5-5.1); Protein, Total 7.2 g/dL (5.8-8.1); Sodium 141 mmol/L (136-145)
[2018-01-29 14:38] LABS: CKMB 6.4 ng/mL (0-6.6); Troponin I 0.129 ng/mL (< 0.028)
[2018-01-29] MEDS ORDERED: Mag-Al 1200 mg/1200 mg/30 ML UDCUP ONE (15:18)
[2018-01-29] MEDS ORDERED: Furosemide 40 MG/4 ML VIAL ONE (15:18)
[2018-01-29] MEDS ORDERED: Lidocaine Viscous Sol 2% 15 ml UD Cup ONE (15:18)
--- NOTE | 2018-01-29 15:21 | CT ---
CT ANGIOGRAM THORAX WITH IV CONTRAST AND 3D RECONSTRUCTION: 01/29/2018 HISTORY: Chest pain and dyspnea. COMPARISON: None available. FINDINGS: A triple-lead left subclavian AICD device is noted in place. The heart is enlarged. No filling defects are seen in the pulmonary arteries to suggest a pulmonary embolus. The thoracic aorta is unopacified, and aortic dissection cannot be evaluated on this exam, but the th oracic aorta is normal in caliber. No enlarged lymph nodes are seen by CT size criteria. There is a nodular parenchymal density seen within the left lung base, which is likely attributable t o atelectasis, but given the nodular appearance, a follow-up evaluation is recommended. This measure s 1.5 cm. A focal area of pneumonitis cannot be entirely excluded. There is no pleural effusion, an d no additional discrete pulmonary nodule or mass is identified. There is incomplete visualization of a right adrenal nodule; however, this was present on a prior CT examination in 2009 and unchanged in size or appearance from that exam, suggesting a benign finding. IMPRESSION: 1. Parenchymal nodular density in the lingula. This could be related to a focal area of pneumonitis or atelectasis. However, given the nodular appearance, follow-up examination is recommended to ensu re resolution. 2. Cardiomegaly. 3. No CT evidence of a pulmonary embolus. 4. Right adrenal nodule, stable compared to a CT examination in 2009, suggesting a benign finding. CODE T POS: [facility]
[2018-01-29 17:21] LABS: Troponin I 0.122 ng/mL (< 0.028)
[2018-01-29] MEDS ORDERED: HYDROcodone/Acetaminophen 5/325 mg Tablet PO PRN (17:54)
[2018-01-29] MEDS ORDERED: Dextrose 50% Abboject 50 ML SYRINGE SLOW IVP PRN (18:13)
[2018-01-29] MEDS ORDERED: Dextrose 5% in Water 1,000 ML IV PRN (18:13)
[2018-01-29] MEDS: Carvedilol 3.125 MG TAB PO SCH (20:45)
[2018-01-29] MEDS: Atorvastatin Calcium 40 MG TAB PO SCH (20:46)
[2018-01-29 20:49] LABS: Troponin I 0.105 ng/mL (< 0.028)
[2018-01-29] MEDS: Insulin NPH/Reg Insulin Hm 300 UNITS/3 ML VIAL SC SCH (21:54)
[2018-01-29 21:56] VITALS: BMI 35.9
--- NOTE | 2018-01-30 00:08 | HP ---
DATE OF ADMISSION: 01/29/2018 CHIEF COMPLAINT: CHF exacerbation. HISTORY OF PRESENT ILLNESS: This is a 67-year-old male with a known history of end-stage heart failu re with a reported ejection fraction of 15%. The patient was recently admitted in the hospital on , he was aggressively diuresed and a defibrillator was placed and discharged. Since patient went home, he has not been feeling well. He is becoming increasingly short of breath, does comply wi th all the medications according to him and his . The patient is back here in the ER with increa sing shortness of breath. He does say that he is following strict salt restriction as well as the fl uid restriction. PAST MEDICAL HISTORY: Significant for diabetes and hypertension with hypercholesterolemia. PAST SURGICAL HISTORY: Significant for defibrillator placement. ALLERGIES: No known allergies. REVIEW OF SYSTEMS: Constitutional: Positive for fatigue and shortness of breath. HEENT: Negative for any eye pain or discharge or vision changes, sore throat, ear, nose pain or any neck pain. Cardi ovascular: Denies any chest pain or palpitation. Respiratory: Positive for shortness of breath. G astrointestinal: Occasional abdominal pain that radiates to the back. Genitourinary: Negative for any dysuria or hematuria. Musculoskeletal: Positive for swollen lower extremities. Neurologic: Ne gative for any headaches or focal deficits. PHYSICAL EXAMINATION: VITAL SIGNS: Blood pressure 135/84, heart rate around 72, respiratory rate 16, pulse oximetry 94%. CONSTITUTIONAL: Vital signs are reviewed. HEENT: Normocephalic, atraumatic head. Normal external ear canal and the tympanic membrane. No dis charge from the nose on inspection. Eyelids and conjunctivae are within normal limits. Pupils are r ound and reactive. NECK: Neck examination is within normal limits. Trachea is midline. No cervical lymphadenopathy. RESPIRATORY AND CHEST: Within normal limits. No wheezes. CARDIOVASCULAR: Regular rate and rhythm. Questionable pansystolic murmur. ABDOMEN: Soft, NT/ND. No peritoneal signs, no rigidity, no rebound. MUSCULOSKELETAL: No swelling of any joints. No tenderness. A 2+ pitting pedal edema. NEUROLOGIC: No focal deficits. Alert and oriented x3. Motor and sensory is intact. SKIN: Dry. No pigmentation, no discoloration. ASSESSMENT AND PLAN: 1. End-stage heart failure. 2. Congestive heart failure exacerbation, acute on chronic systolic heart failure. Treat the patien t with IV Lasix, strict heart healthy diet with low sodium and fluid restriction [address] Selvin Ivan who has seen this patient previously. 4. Hypertension. Continue home medications. 5. Hypercholesterolemia. Continue home statin. 6. Diabetes. Continue home insulin and glipizide. 7. Hold torsemide from home, but continue with IV Lasix and diurese the patient. 8. Chronic kidney disease with a creatinine of 2.1, continue to monitor and trend chronic kidney dis ease. 9. Mildly elevated troponins in the setting of chronic kidney disease and also end-stage heart failu re. 10. Elevated beta natriuretic peptide at 2500.
[2018-01-30] MEDS ORDERED: Sodium Chloride 0.9% 10 ML ONE (05:49)
[2018-01-30] MEDS: Furosemide 40 MG/4 ML VIAL SLOW IVP SCH ×2 (06:42→14:39)
[2018-01-30 06:47] LABS: Anion Gap 9 mmol/L (10-20); BUN (Urea Nitrogen) 32 mg/dL (8.4-25.7); Calc. Creatinine Clearance 61 mL/min (70-130); Carbon Dioxide 28 mmol/L (23-31); Chloride 106 mmol/L (98-107); Estimated GFR-MDRD 40; Glucose 177 mg/dL (80-115); Sodium 139 mmol/L (136-145)
[2018-01-30] MEDS ORDERED: Prevnar 13-Val Conj/PF 0.5 ML SYRINGE IM ONE (09:00)
[2018-01-30] MEDS: Alogliptin 6.25 MG TAB PO SCH (09:32)
[2018-01-30] MEDS: Carvedilol 3.125 MG TAB PO SCH ×2 (09:32→20:48)
[2018-01-30] MEDS: Aspirin 325 MG TAB PO SCH (09:32)
[2018-01-30] MEDS: Potassium Chloride 10 MEQ TAB PO SCH (09:33)
[2018-01-30] MEDS: Insulin NPH/Reg Insulin Hm 300 UNITS/3 ML VIAL SC SCH ×2 (09:33→20:53)
[2018-01-30] MEDS: HumaLOG 300 UNITS/3 ML VIAL SC PRN (12:58)
--- NOTE | 2018-01-30 18:11 | PDOC.PN ---
- Subjective Encounter Start Date: 01/30/18 Encounter Start Time: 17:45 Subjective: f/u for acute systolic CHF on IV Lasix. Feels better and minimal SOB. -: Swelling decreased. Appetite ok. No CP. - Objective Resuscitation Status: Resuscitation Status FULL:Full Resuscitation MAR Reviewed: Yes Vital Signs & Weight: Vital Signs (12 hours) Temp Pulse Resp BP Pulse Ox 01/30/18 12:56 98.1 F 90 16 110/69 96 01/30/18 08:16 98 01/30/18 08:14 97.9 F 92 18 113/72 98 Weight Weight 263 lb 3.2 oz I&O: 01/29/18 01/30/18 01/31/18 06:59 06:59 06:59 Intake Total 564 Output Total 425 Balance 139 Result Diagrams: 01/29/18 13:50 01/30/18 05:30 Additional Labs: Accuchecks 01/30/18 01/30/18 01/30/18 16:49 10:41 05:27 POC Glucose 82 225 H 157 H 01/29/18 19:42 POC Glucose 115 H Laboratory Tests 12/30/17 01/03/18 01/04/18 02:01 04:00 03:58 Creatinine 2.40 H 2.31 H Troponin I B-Natriuretic Peptide 2239.4 H 01/29/18 01/29/18 01/29/18 13:50 13:50 13:50 Creatinine 2.10 H Troponin I 0.129 H B-Natriuretic Peptide 2535.2 H 01/29/18 01/29/18 16:47 20:03 Creatinine Troponin I 0.122 H 0.105 H B-Natriuretic Peptide Radiology Reviewed by me: Yes (PCXR - minimal edema) EKG Reviewed by me: Yes (Tele - V-paced) Phys Exam - Physical Examination Constitutional: NAD HEENT: PERRLA, sclera anicteric, oral pharynx no lesions Neck: no nodes, no JVD, supple, full ROM Respiratory: no wheezing, no rales, no rhonchi, clear to auscultation bilateral S1, S2, III/ holosystolic murmur Cardiovascular: RRR, no rub, gallop Gastrointestinal: soft, non-tender, no distention, positive bowel sounds mild peripheral edema Musculoskeletal: pulses present Neurological: non-focal, normal sensation, moves all 4 limbs Psychiatric: normal affect, A&O x 3 Skin: no rash, normal turgor, cap refill <2 seconds Dx/Plan (1) Acute exacerbation of CHF (congestive heart failure) Code(s): I50.9 - HEART FAILURE, UNSPECIFIED Status: Acute Qualifiers: Heart failure type: combined systolic and diastolic Qualified Code(s): I50.43 - Acute on chronic combined systolic (congestive) and diastolic ( congestive) heart failure Comment: EF 10-15%, continue Lasix 40mg IV BID, likely transition to po Lasix in am (2) Combined systolic and diastolic heart failure, NYHA class 3 Code(s): I50.40 - UNSP COMBINED SYSTOLIC AND DIASTOLIC (CONGESTIVE) HRT FAIL Status: Acute Comment: EF 10-15% (3) CKD (chronic kidney disease), stage III Code(s): N18.3 - CHRONIC KIDNEY DISEASE, STAGE 3 (MODERATE) Status: Chronic Comment: Stable, continue to monitor, avoid nephrotoxic agents and limit contrast (4) DM2 (diabetes mellitus, type 2) Status: Chronic Comment: Continue NPH 35u am, 30u hs, ISS (5) HTN (hypertension) Code(s): I10 - ESSENTIAL (PRIMARY) HYPERTENSION Status: Chronic Comment: Continue home BP regimen, titrate to optimal response - Plan plan discussed w/ family, social services designee, out of bed/ambulate, DVT proph w/SCDs Stable overall -: Continue Lasix 40mg IV BID -: Monitor renal function carefully -: OOB/ambulate -: AM lab: BMP * .
[2018-01-30] MEDS: Enoxaparin Sodium 40 MG/0.4 ML SYRINGE SC SCH (18:34)
[2018-01-30] MEDS: Atorvastatin Calcium 40 MG TAB PO SCH (20:48)
--- NOTE | 2018-01-31 01:17 | CON ---
DATE OF CONSULTATION: 01/30/2018 HISTORY OF PRESENT ILLNESS: Percy Grullon is a 67-year-old black male that I initially evaluated in 10/2007. He presented with 3-4 weeks of chest pressure, shortness of breath and lower extremity edema. Sometimes the discomfort would radiate into his neck and jaw. Echo revealed ejection fraction of 20%-25%. He underwent cardiac catheterization, which revealed ejection fraction 10%-15% with severe 3-vessel coronary artery disease. He was seen by Surgery and felt not to be a candidate for bypass. He did have a dual-chamber ICD placed at that time. He has been followed in the office, although is very noncompliant with followups. At times, he also presented having stopped taking all of his medications. Echocardiogram approximately 3 years ago revealed ejection fraction of 30%-35%. He was admitted one month ago with increased peripheral edema. Echocardiogram revealed ejection fraction of 10%-15%. He did have a wider complex QRS and underwent upgrade to a biventricular ICD. He seemed to have improvement in his breathing after that was placed. Coreg dose was reduced to 1/2 of a 3.125 b.i.d. due to hypotension. He now is admitted with increased peripheral edema, increased shortness of breath over the last several days. He denies any chest discomfort, but does complain of some epigastric pain at times. PAST MEDICAL HISTORY: Severe three-vessel coronary artery disease felt to be inoperable 10 years ago, diabetes, obstructive sleep apnea, obesity, GERD, chronic kidney disease, hypertension, hypercholesterolemia. OPERATIONS: ICD placement. One month ago, this was upgraded to a biventricular ICD, tracheostomy in the past. HOME MEDICATIONS: Ecotrin 81 daily, atorvastatin 80 at bedtime, carvedilol 3.125 b.i.d. furosemide 40 daily, Humalog as directed, insulin NPH, isosorbide mononitrate 30 daily, niacin 500 mg at bedtime, KCl 10 mEq b.i.d., Januvia 50 mg daily, torsemide 20 mg daily. ALLERGIES: None. SOCIAL HISTORY: He is a former smoker. He does not drink. FAMILY HISTORY: Unremarkable. REVIEW OF SYSTEMS: Twelve point review of systems otherwise unremarkable. PHYSICAL EXAMINATION: VITAL SIGNS: 110/69, pulse of 90. HEENT: PERRL. NECK: Supple. LUNGS: Chest is clear. CARDIAC: S1, S2 normal, without any S3 or S4. There is a 1-2/6 systolic ejection murmur (aortic sclerosis on last echo). ABDOMEN: Normal bowel sounds, without tenderness. EXTREMITIES: Revealed 2+ pretibial edema to the knee. NEUROLOGIC: Grossly intact. LABORATORY DATA: EKG reveals atrial sensing, ventricular pacing. Hemoglobin 10.2, hematocrit 32.0, white count 4600, platelets 167,000. D-dimer 153. Sodium 139, potassium 4.0, chloride 106, carbon dioxide 28, BUN 32, creatinine 2.05. Troponin I 0.105. IMPRESSION: 1. Acute on chronic systolic and diastolic heart failure. 2. Severe ischemic cardiomyopathy with ejection fraction 10%-15%. 3. Three-vessel coronary artery disease felt to be inoperable 10 years ago. 4. Noncompliance with medications and followups at times. 5. Hypertension. 6. Hypercholesterolemia. 7. Diabetes. 8. Former smoker. 9. Chronic kidney disease. 10. Gastroesophageal reflux disease. PLAN: Patient's will continue with intravenous furosemide 40 mg b.i.d. for diuresis. Renal function needs to be watched closely. Certainly, Mr. Grullon's long-term prognosis is poor with his severe ischemic cardiomyopathy. MARY ANNE
[2018-01-31] MEDS ORDERED: Sodium Chloride 0.9% 10 ML ONE (05:39)
[2018-01-31] MEDS: Furosemide 40 MG/4 ML VIAL SLOW IVP SCH ×2 (05:43→15:31)
[2018-01-31 06:19] LABS: Anion Gap 13 mmol/L (10-20); BUN (Urea Nitrogen) 33 mg/dL (8.4-25.7); Calc. Creatinine Clearance 65 mL/min (70-130); Calcium 9.1 mg/dL (7.8-10.44); Carbon Dioxide 24 mmol/L (23-31); Chloride 106 mmol/L (98-107); Estimated GFR-MDRD 42; Glucose 79 mg/dL (80-115); Potassium 3.6 mmol/L (3.5-5.1); Sodium 139 mmol/L (136-145)
[2018-01-31] MEDS: Alogliptin 6.25 MG TAB PO SCH (08:19)
[2018-01-31] MEDS: Carvedilol 3.125 MG TAB PO SCH ×2 (08:19→21:11)
[2018-01-31] MEDS: Aspirin 325 MG TAB PO SCH (08:19)
[2018-01-31] MEDS: Enoxaparin Sodium 40 MG/0.4 ML SYRINGE SC SCH (08:20)
[2018-01-31] MEDS: Potassium Chloride 10 MEQ TAB PO SCH (08:21)
[2018-01-31] MEDS: Insulin NPH/Reg Insulin Hm 300 UNITS/3 ML VIAL SC SCH ×2 (08:39→21:16)
[2018-01-31] MEDS: Senokot S 8.6-50 MG TAB PO SCH ×2 (13:11→21:11)
--- NOTE | 2018-01-31 15:37 | PDOC.PN ---
- Subjective Encounter Start Date: 01/31/18 Encounter Start Time: 15:15 Subjective: f/u for acute/chronic systolic CHF on IV Lasix. Feels better overall -: and minimal SOB. LE edema improved. - Objective Resuscitation Status: Resuscitation Status FULL:Full Resuscitation MAR Reviewed: Yes Vital Signs & Weight: Vital Signs (12 hours) Temp Pulse Resp BP Pulse Ox 01/31/18 15:30 97.9 F 89 16 129/73 99 01/31/18 13:18 97.7 F 90 16 133/58 L 93 L 01/31/18 07:55 99 01/31/18 07:46 97.8 F 87 16 138/74 99 Weight Weight 265 lb 9.6 oz I&O: 01/30/18 01/31/18 02/01/18 06:59 06:59 06:59 Intake Total 564 1674 Output Total 425 1675 Balance 139 -1 Result Diagrams: 01/29/18 13:50 01/31/18 05:24 Additional Labs: Accuchecks 01/31/18 01/31/18 01/31/18 10:41 05:28 00:52 POC Glucose 93 87 83 01/31/18 01/30/18 01/30/18 00:23 20:18 16:49 POC Glucose 55 L* 137 H 82 Laboratory Tests 12/30/17 01/03/18 01/04/18 02:01 04:00 03:58 Creatinine 2.40 H 2.31 H Troponin I B-Natriuretic Peptide 2239.4 H 01/29/18 01/29/18 01/29/18 13:50 13:50 13:50 Creatinine 2.10 H Troponin I 0.129 H B-Natriuretic Peptide 2535.2 H 01/29/18 01/29/18 01/30/18 16:47 20:03 05:30 Creatinine 2.05 H Troponin I 0.122 H 0.105 H B-Natriuretic Peptide EKG Reviewed by me: Yes (Tele - V-paced) Phys Exam - Physical Examination Constitutional: NAD HEENT: PERRLA, sclera anicteric, oral pharynx no lesions Neck: no nodes, no JVD, supple, full ROM Respiratory: no wheezing, no rales, no rhonchi, clear to auscultation bilateral S1, S2, holosystolic murmur Cardiovascular: RRR (S), no rub, gallop obese Gastrointestinal: soft, non-tender, no distention, positive bowel sounds mild peripheral edema Musculoskeletal: pulses present Neurological: normal sensation, moves all 4 limbs Psychiatric: normal affect, A&O x 3 Skin: no rash, normal turgor, cap refill <2 seconds Dx/Plan (1) Acute exacerbation of CHF (congestive heart failure) Code(s): I50.9 - HEART FAILURE, UNSPECIFIED Status: Acute Qualifiers: Heart failure type: combined systolic and diastolic Qualified Code(s): I50.43 - Acute on chronic combined systolic (congestive) and diastolic ( congestive) heart failure Comment: EF 10-15%, continue Lasix 40mg IV BID, likely transition to po Lasix in am (2) Combined systolic and diastolic heart failure, NYHA class 3 Code(s): I50.40 - UNSP COMBINED SYSTOLIC AND DIASTOLIC (CONGESTIVE) HRT FAIL Status: Acute Comment: EF 10-15% (3) CKD (chronic kidney disease), stage III Code(s): N18.3 - CHRONIC KIDNEY DISEASE, STAGE 3 (MODERATE) Status: Chronic Comment: Stable, continue to monitor, avoid nephrotoxic agents and limit contrast (4) DM2 (diabetes mellitus, type 2) Status: Chronic Comment: Continue NPH 35u am, 30u hs, ISS (5) HTN (hypertension) Code(s): I10 - ESSENTIAL (PRIMARY) HYPERTENSION Status: Chronic Comment: Continue home BP regimen, titrate to optimal response - Plan PT/OT, clinical social work aide, out of bed/ambulate Stable overall -: Continue Lasix 40mg IV BID -: Monitor renal function closely with IV Lasix -: OOB/ambulate -: AM lab: BMP * Likely home in 24h
[2018-01-31] MEDS: Atorvastatin Calcium 40 MG TAB PO SCH (21:12)
[2018-02-01 01:51] LABS: Anion Gap 13 mmol/L (10-20); BUN (Urea Nitrogen) 35 mg/dL (8.4-25.7); Calc. Creatinine Clearance 56 mL/min (70-130); Calcium 8.8 mg/dL (7.8-10.44); Carbon Dioxide 26 mmol/L (23-31); Chloride 104 mmol/L (98-107); Estimated GFR-MDRD 36; Glucose 216 mg/dL (80-115); Magnesium 2.6 mg/dL (1.6-2.6); Potassium 3.7 mmol/L (3.5-5.1); Sodium 139 mmol/L (136-145)
[2018-02-01] MEDS: Furosemide 40 MG/4 ML VIAL SLOW IVP SCH (05:16)
[2018-02-01] MEDS: Alogliptin 6.25 MG TAB PO SCH (09:17)
[2018-02-01] MEDS: Aspirin 325 MG TAB PO SCH (09:17)
[2018-02-01] MEDS: Carvedilol 3.125 MG TAB PO SCH (09:17)
[2018-02-01] MEDS: Enoxaparin Sodium 40 MG/0.4 ML SYRINGE SC SCH (09:18)
[2018-02-01] MEDS: Senokot S 8.6-50 MG TAB PO SCH (09:19)
[2018-02-01] MEDS: Potassium Chloride 10 MEQ TAB PO SCH (09:19)
[2018-02-01] MEDS: Insulin NPH/Reg Insulin Hm 300 UNITS/3 ML VIAL SC SCH (09:27)
[2018-02-01] MEDS: HumaLOG 300 UNITS/3 ML VIAL SC PRN (11:16)
[2018-02-01 16:58] VITALS: BP 110/56; TEMP 98.3
--- NOTE | 2018-02-02 02:05 | DIS ---
DATE OF ADMISSION: 01/29/2018 DATE OF DISCHARGE: 02/01/2018 DISCHARGE DIAGNOSES: 1. Decompensation of congestive heart failure, combined systolic and diastolic class 3 NYHA with an ejection fraction of 10% to 15%. 2. Chronic kidney disease, stage 3. 3. Diabetes mellitus, type 2. 4. Hypertension. HISTORY: This patient is a 67-year-old male, who was recently admitted to the hospital with an episo de of congestive heart failure and noted to have ejection fraction in the 10% to 15% range and had a subsequent defibrillator placed about 3 weeks prior. The patient was discharged to home on diuretics , but QUINN inhibitors being avoided because of his renal function. He subsequently had reported that he was following his diet very carefully and had not deviated significantly with increased salt or fl uid intake. Nonetheless, the patient had increasing shortness of breath and presented back via the e mergency department. The patient had evidence of some pulmonary edema including the CT of the chest, which revealed no pulmonary embolus and was a stable adrenal nodule and a parenchymal nodular densit y in the lingula. HOSPITAL COURSE: The patient was admitted to the hospital with initial labs were notable for a BNP o f 2535, creatinine was 2.10. Troponin was 0.129. He was diuresed with IV diuretics. His overall sy mptomatology improved substantially to the point where he was able to get up and walk around fairly w ell. His troponins remained essentially unchanged. His creatinine stayed between 1.94 and 2.25. He was seen in consultation by Cardiology. Once the patient was symptomatically improved, his renal fu nction was stable, he was felt to go back to the oral medications. On the day of discharge, this dis cussed with Cardiology, they recommended doubling his outpatient diuretic level. PHYSICAL EXAMINATION: VITAL SIGNS: On the day of discharge, temperature 98.5, pulse 88, respirations 16, O2 sat 96% on mimi m air, blood pressure 108/60. GENERAL APPEARANCE: Age appropriate male, in no distress. He is awake, alert, oriented, pleasant, c ooperative. HEART: Regular rate and rhythm without murmurs. LUNGS: Clear bilaterally. ABDOMEN: Soft, nontender. EXTREMITIES: No edema. LABORATORY DATA: BUN 35, creatinine 2.25, glucose 104. DISPOSITION: The patient is discharged to home. DIET: He is to continue with a heart healthy, low sodium diet. ACTIVITY: His activity level is as tolerated. DISCHARGE MEDICATIONS: His medications will include torsemide 40 mg p.o. q. day; atorvastatin 80 mg at bedtime; isosorbide mononitrate 30 mg q. day; niacin 500 mg at bedtime; Januvia 50 mg q. day; Sindhu log as directed; Novolin 70/30, 30 units subcu at bedtime and 35 units q.a.m.; Shelby p.r.n.; potassiu m 10 mEq b.i.d.; aspirin 81 mg q. day; and Coreg 3.125 p.o. b.i.d. Of note, the patient will not receive an QUINN inhibitor as he did not at his previous discharge due to his renal function concerns. The patient is to follow up with the [facility] first thing next week. He will also follow up with Dr. Kylee Pham on 02/04/2018 at 1:[address] Ivan in 2-3 weeks. He should ret urn to the emergency department should he have any problems prior to that time.
--- NOTE | 2018-02-04 09:35 | PDOC.EVN ---
Event Note - Event Note Event Note: Talked to Carly Valentine with the HF clinic to ensure the communication regarding the nodular area in the lingula on CTA of the chest gets appropriate follow up. He as a follow up appointment with his PCP today at 1:00. She will make sure Dr. Pham is aware of the CT results and the need for follow up.
== END 2018-02-01 17:13 | disposition home or self-care (01) | DRG 291 ==
LOC: ERS 13:31 → 2NO 15:27
PROVIDERS: ADMIT Family Medicine; ATTEND Family Medicine
DX: I13.0 Hypertensive heart and chronic kidney disease with heart failure and stage 1 through stage 4 chronic kidney disease, or unspecified chronic kidney disease (principal); I50.43 Acute on chronic combined systolic (congestive) and diastolic (congestive) heart failure; E11.22 Type 2 diabetes mellitus with diabetic chronic kidney disease; N18.3 Chronic kidney disease, stage 3 (moderate); Z87.891 Personal history of nicotine dependence; I25.10 Atherosclerotic heart disease of native coronary artery without angina pectoris; G47.33 Obstructive sleep apnea (adult) (pediatric); K21.9 Gastro-esophageal reflux disease without esophagitis; E78.00 Pure hypercholesterolemia, unspecified; E66.9 Obesity, unspecified; Z68.35 Body mass index [BMI] 35.0-35.9, adult
CPT/HCPCS: 36415; 36416; 71045; 71275; 80048; 80053; 82550; 82553; 83690; 83735; 83880; 84484; 85025; 85379; 90471; 90670; 93005; 93798; 96374; A4216; G0009; J1650; J1940